=== PATIENT | male | born 1975 ===

== ENCOUNTER 2016-11-09 11:37 | Observation (INO) | payer OTHER ==
[2016-11-09 12:00] VITALS: RESP 18; O2SAT 98
[2016-11-09] MEDS ORDERED: Sodium Chloride 0.9% 1,000 ML IV ONE (12:10)
--- NOTE | 2016-11-09 12:10 | C.PDOC ---
History Of Present Illness 41-year-old male, presents to the emergency department with complaints of abdominal pain to lower abdomen, which is worse in right lower quadrant. Pain started last night. Pain is sharp and described as a cramping sensation. Patient notes a history of diverticulitis and last flare up in 11/2015, states that current symptoms feel similar. He notes feeling constipated. Last bowel movement yesterday, and it was non-bloody. Denies nausea/vomiting, fevers or chills. Time Seen by Provider: 11/09/16 12:06 Chief Complaint (Nursing): Abdominal Pain History Per: Patient History/Exam Limitations: no limitations Onset/Duration Of Symptoms: Days Current Symptoms Are (Timing): Still Present Location Of Pain/Discomfort: RLQ, LLQ Quality Of Discomfort: Sharp, Cramping, "Pain" Associated Symptoms: Constipation Past Medical History Reviewed: Historical Data, Nursing Documentation, Vital Signs Vital Signs: Last Vital Signs Temp 98.4 F 11/09/16 15:40 Pulse 68 11/09/16 15:40 Resp 18 11/09/16 15:40 BP 143/87 11/09/16 15:40 Pulse Ox 98 11/09/16 15:40 - Medical History PMH: Anxiety, Diverticulitis, HTN Surgical History: No Surg Hx Family History: States: No Known Family Hx - Social History Hx Alcohol Use: Yes Hx Substance Use: No - Immunization History Hx Tetanus Toxoid Vaccination: No Hx Influenza Vaccination: No Hx Pneumococcal Vaccination: No Review Of Systems Except As Marked, All Systems Reviewed And Found Negative. Constitutional: Negative for: Fever Cardiovascular: Negative for: Chest Pain Respiratory: Negative for: Shortness of Breath Gastrointestinal: Positive for: Abdominal Pain, Constipation Musculoskeletal: Negative for: Back Pain Neurological: Negative for: Weakness, Numbness, Headache, Dizziness Physical Exam - Physical Exam Appears: Non-toxic, No Acute Distress, Other (Uncomfortable) Skin: Warm, Dry, No Rash Head: Atraumatic, Normacephalic Eye(s): bilateral: Normal Inspection, EOMI Oral Mucosa: Moist Lips: Normal Appearing Neck: Normal ROM Chest: Symmetrical Cardiovascular: Rhythm Regular, No Murmur Respiratory: Normal Breath Sounds, No Accessory Muscle Use Gastrointestinal/Abdominal: Bowel Sounds, Soft, Tenderness (B/L lower quadrants) , No Mass, No Distention, Guarding (voluntary), No Rebound Extremity: Bilateral: Atraumatic, Normal Color And Temperature, Normal ROM Neurological/Psych: Oriented x3, Normal Speech Gait: Steady ED Course And Treatment - Laboratory Results Result Diagrams: 11/09/16 12:46 11/09/16 12:46 Lab Interpretation: Abnormal O2 Sat by Pulse Oximetry: 98 (room air) Pulse Ox Interpretation: Normal - CT Scan/US CT ABD/PEL Other Rad Studies (CT/US): Read By Radiologist, Radiology Report Reviewed CT/US Interpretation: Accession No. : [id number]. Patient Name / ID : BRAYAN DAY / [id number]. Exam Date : 11/09/2016 13:43:29 ( Approved ). Study Comment : Sex / Age : M / 41Y. Creator : Jaylen Hoffmann MD. Dictator : Jaylen Hoffmann MD. Parole Or Probation Officer : Customer Success Intern : Jaylen Hoffmann MD. Approver2 : Report Date : 11/09/2016 14:52:38. My Comment : . PROCEDURE : CT Abdomen and Pelvis with contrast. HISTORY: lower abd pain h.o diverticulitis. COMPARISON: None. TECHNIQUE: Contrast dose: 100 mL Visipaque 320. Radiation dose: Total exam DLP = 591.53 mGy-cm. This CT exam was performed using one or more of the following dose reduction techniques: Automated exposure control, adjustment of the mA and/or kV according to patient size, and/or use of iterative reconstruction technique. FINDINGS: LOWER THORAX : Mild ill-defined opacity lateral segment right middle lobe. Possible early pneumonia. LIVER: Normal size and contour. Diffusely diminished attenuation consistent with fatty infiltration. No focal mass. No biliary ductal dilatation. GALLBLADDER AND BILE DUCTS: Unremarkable. PANCREAS: Unremarkable. No gross lesion or ductal dilatation. SPLEEN: Unremarkable. ADRENALS: Unremarkable. No mass. KIDNEYS AND URETERS: Unremarkable. No hydronephrosis. No solid mass. VASCULATURE: Unremarkable. No aortic aneurysm. BOWEL: There is mural thickening of the sigmoid colon with very sigmoid inflammatory change. There is diverticulosis of this sigmoid colon. Findings are consistent with acute diverticulitis. No evidence of perisigmoid abscess. No evidence of pneumoperitoneum. Scattered colonic diverticular are noted elsewhere without inflammatory change. There is no bowel obstruction. There are no other abnormal bowel loops identified. APPENDIX: Normal appendix. PERITONEUM: Unremarkable. No free fluid. No free air. LYMPH NODES: Unremarkable. No enlarged lymph nodes. BLADDER: Unremarkable. REPRODUCTIVE: Normal prostate. BONES: Degenerative disc disease and grade 1 retrolisthesis at L5-S1, without evidence of spondylolysis. OTHER FINDINGS: None. IMPRESSION : Acute sigmoid diverticulitis. No evidence of very sigmoid abscess or pneumoperitoneum. Mild ill-defined opacity lateral segment right middle lobe, possible early pneumonia. Fatty infiltration of the liver. Medical Decision Making Medical Decision Making: Impression 41y/o M comes in w/ abdominal pain x3 days Plan: * CT Abd/Pel * CMP, Lipase * CBC * Catapres, Morphine, IVF, Zofran * Urinalysis * Reassess and Disposition ED OBSERVATION Discharge: Yes Date of observation admission: 11/09/16 Time of observation admission: 12:11 - Observation admission statement Patient is being placed in observation because:: Abdominal pain, suspect diverticulitis - Goals of Observation Goals of observation are:: IV hydration, analgesics, CT imaging - Progress Note Progress Note: 11/09/16 13:06 Labs reviewed: CBC has mild leukocytosis, no electrolyte abnormality, CT is pending. 11/09/16 14:31 CT has been completed, pending Radiology report 11/09/16 14:57 CT report shows Acute sigmoid diverticulitis. No evidence of very sigmoid abscess or pneumoperitoneum. 11/09/16 15:09 Patient reevaluated and is resting comfortably in bed in no acute distress. He reports abdominal pain has improved. Abdomen is soft, no rebound or guarding, and he was able to tolerate PO. Patient has no fever and stable vital signs. I discussed all results and provide copy of lab and CT report. Patient feels comfortable going home and will be discharged. BP has improved. Will discharge with Rx for antibiotics and antihypertensive. Patient was advised to follow up with clinic in few days. Disposition Counseled Patient/Family Regarding: Studies Performed, Diagnosis, Need For Followup, Rx Given - Disposition Disposition: HOME/ ROUTINE Disposition Time: 15:10 Condition: IMPROVED - POA Present On Arrival: None - Clinical Impression Clinical Impression: Diverticulitis, Abdominal pain - PA / PROFESSOR OF GRAPHIC DESIGN / Resident Statement MD/DO has reviewed & agrees with the documentation as recorded. - Scribe Statement The provider has reviewed the documentation as recorded by the Scribe (Domonique Quiroz) All medical record entries made by the Scribe were at my direction and personally dictated by me. I have reviewed the chart and agree that the record accurately reflects my personal performance of the history, physical exam, medical decision making, and the department course for this patient. I have also personally directed, reviewed, and agree with the discharge instructions and disposition.
[2016-11-09 12:51] LABS: BASO # 0.1 K/uL (0.0-0.2); BASO % 0.8 % (0.0-2.0); EOS # 0.2 K/uL (0.0-0.7); EOS % 1.8 % (0.0-4.0); HEMATOCRIT 42.6 % (35.0-51.0); LYMPH # 1.6 K/uL (1.0-4.3); LYMPH % 12.8 % (20.0-40.0); MEAN CELL VOLUME 87.2 fL (80.0-94.0); MEAN CORPUSCULAR HEMOGLOBIN 29.9 pg (27.0-31.0); MEAN CORPUSCULAR HGB CONC 34.3 g/dL (33.0-37.0); MONO % 7.8 % (0.0-10.0); RED CELL DISTRIBUTION WIDTH 13.1 % (11.5-14.5); WHITE BLOOD COUNT 12.6 K/uL (4.8-10.8)
[2016-11-09 12:54] LABS: RBC URINE 1 /hpf (0-3); URINE BILIRUBIN NEGATIVE (NEGATIVE); URINE BLOOD NEGATIVE (NEGATIVE); URINE COLOR Yellow (YELLOW); URINE GLUCOSE (UA) NORMAL (Normal); URINE KETONE NEGATIVE (NEGATIVE); URINE LEUKOCYTE ESTERASE NEG Leu/uL (Negative); URINE PROTEIN NEGATIVE (NEGATIVE); URINE UROBILINOGEN NORMAL mg/dL (0.2-1.0); WBC URINE < 1 /hpf (0-5)
[2016-11-09] MEDS ORDERED: Morphine 4 MG/ML VIAL ONE (12:54)
[2016-11-09] MEDS ORDERED: Sodium Chloride 0.9% 1,000 ML ONE (12:54)
[2016-11-09 12:57] LABS: CHLORIDE 99 mmol/L (98-107); POTASSIUM 3.8 mmol/L (3.6-5.2); SODIUM 137 mmol/L (132-148)
[2016-11-09 12:59] LABS: BILIRUBIN,TOTAL 1.1 mg/dL (0.2-1.3); GFR AFRICAN-AMERICAN > 60
[2016-11-09 13:00] LABS: ALB/GLOB RATIO 1.1 (1.0-2.1); ALKALINE PHOSPHATASE 53 U/L (38-126); AST/SGOT 24 U/L (17-59); CARBON DIOXIDE 25 mmol/L (22-30)
[2016-11-09 13:01] LABS: ALT/SGPT 44 U/L (21-72); BLOOD UREA NITROGEN 8 mg/dL (9-20); CALCIUM 9.2 mg/dl (8.6-10.4); GLUCOSE,RANDOM 103 mg/dL (75-110)
[2016-11-09] MEDS ORDERED: Iodixanol 320 MG/ML 100 ML BOTTLE IV ONE (13:22)
--- NOTE | 2016-11-09 14:54 | CT ---
PROCEDURE: CT Abdomen and Pelvis with contrast HISTORY: lower abd pain h.o diverticulitis COMPARISON: None. TECHNIQUE: Contrast dose: 100 mL Visipaque 320 Radiation dose: Total exam DLP = 591.53 mGy-cm. This CT exam was performed using one or more of the following dose reduction techniques: Automated exposure control, adjustment of the mA and/or kV according to patient size, and/or use of iterative reconstruction technique. FINDINGS: LOWER THORAX: Mild ill-defined opacity lateral segment right middle lobe. Possible early pneumonia. LIVER: Normal size and contour. Diffusely diminished attenuation consistent with fatty infiltration. No focal mass. No biliary ductal dilatation. GALLBLADDER AND BILE DUCTS: Unremarkable. PANCREAS: Unremarkable. No gross lesion or ductal dilatation. SPLEEN: Unremarkable. ADRENALS: Unremarkable. No mass. KIDNEYS AND URETERS: Unremarkable. No hydronephrosis. No solid mass. VASCULATURE: Unremarkable. No aortic aneurysm. BOWEL: There is mural thickening of the sigmoid colon with very sigmoid inflammatory change. There is diverticulosis of this sigmoid colon. Findings are consistent with acute diverticulitis. No evidence of perisigmoid abscess. No evidence of pneumoperitoneum. Scattered colonic diverticular are noted elsewhere without inflammatory change. There is no bowel obstruction. There are no other abnormal bowel loops identified. APPENDIX: Normal appendix. PERITONEUM: Unremarkable. No free fluid. No free air. LYMPH NODES: Unremarkable. No enlarged lymph nodes. BLADDER: Unremarkable. REPRODUCTIVE: Normal prostate BONES: Degenerative disc disease and grade 1 retrolisthesis at L5-S1, without evidence of spondylolysis. OTHER FINDINGS: None. IMPRESSION: Acute sigmoid diverticulitis. No evidence of very sigmoid abscess or pneumoperitoneum. Mild ill-defined opacity lateral segment right middle lobe, possible early pneumonia. Fatty infiltration of the liver.
[2016-11-09 15:41] VITALS: BP 143/87; PULSE 68; TEMP 98.4
== END 2016-11-09 15:11 | disposition home or self-care (01) ==
LOC: C.ER 11:37 → C.9OBSV 12:11
PROVIDERS: ADMIT Emergency Medicine; ATTEND Emergency Medicine
DX: K57.92 Diverticulitis of intestine, part unspecified, without perforation or abscess without bleeding (principal); K59.00 Constipation, unspecified; I10 Essential (primary) hypertension
CPT/HCPCS: 74177; 80053; 81001; 83690; 85025; 96360; 96374; G0378; J2270; J2405; J7040; Q9967

== ENCOUNTER 2016-12-16 11:20 | Inpatient (IN) | payer OTHER ==
[2016-12-16] MEDS ORDERED: Sodium Chloride 0.9% 1,000 ML IV ONE (12:00)
[2016-12-16] MEDS ORDERED: Sodium Chloride 0.9% 1,000 ML ONE (12:09)
[2016-12-16 12:31] LABS: BASO % 0.4 % (0.0-2.0); EOS % 0.3 % (0.0-4.0); HEMOGLOBIN 15.4 g/dL (12.0-18.0); LYMPH # 0.6 K/uL (1.0-4.3); LYMPH % 10.3 % (20.0-40.0); MEAN CORPUSCULAR HEMOGLOBIN 30.1 pg (27.0-31.0); MEAN CORPUSCULAR HGB CONC 33.8 g/dL (33.0-37.0); MONO # 0.3 K/uL (0.0-0.8); MONO % 4.8 % (0.0-10.0); NEUT # 5.3 K/uL (1.8-7.0); NEUT % 84.2 % (50.0-75.0); NRBC % 0.1 % (0.0-2.0); RBC 5.1 Mil/uL (4.40-5.90); RED CELL DISTRIBUTION WIDTH 13.5 % (11.5-14.5); WHITE BLOOD COUNT 6.3 K/uL (4.8-10.8)
[2016-12-16 12:39] LABS: ALBUMIN 4.4 g/dL (3.5-5.0)
[2016-12-16 12:42] LABS: ALB/GLOB RATIO 1.1 (1.0-2.1); AST/SGOT 33 U/L (17-59); BLOOD UREA NITROGEN 13 mg/dL (9-20); GFR AFRICAN-AMERICAN > 60; GFR NON-AFRICAN AMERICAN > 60
[2016-12-16 12:43] LABS: ALT/SGPT 52 U/L (21-72); CALCIUM 9.1 mg/dl (8.6-10.4); LIPASE 145 U/L (23-300)
--- NOTE | 2016-12-16 13:19 | CT ---
PROCEDURE: CT Abdomen and Pelvis without intravenous contrast HISTORY: Pain COMPARISON: Prior abdomen pelvis CT examination 11/09/2016. TECHNIQUE: Helical CT and pelvis performed without oral or intravenous contrast as per referring physician request despite gastrointestinal indication.. Contrast Dose: None Radiation dose: Total exam DLP = 454 mGy-cm. This CT exam was performed using one or more of the following dose reduction techniques: Automated exposure control, adjustment of the mA and/or kV according to patient size, and/or use of iterative reconstruction technique. FINDINGS: LOWER THORAX: Unremarkable. LIVER: Fatty liver again evident. No gross lesion or ductal dilatation. GALLBLADDER AND BILE DUCTS: Unremarkable. PANCREAS: Unremarkable. No gross lesion or ductal dilatation. SPLEEN: Unremarkable. ADRENALS: Unremarkable. No mass. KIDNEYS AND URETERS: Unremarkable. No hydronephrosis. No solid mass. VASCULATURE: Unremarkable. No aortic aneurysm. BOWEL: Prior sigmoid diverticulitis pattern appears to resolved. However, thickening of the descending colon wall is seen distally with pericolic reaction and associated diverticulosis suggestive of diverticulitis without CT sign of rupture. No abscess or free air. No significant fluid collection in the pericolic gutter. Further clinical correlation is advised. No bowel obstruction is appreciated with small-bowel unremarkable appearing unremarkable as well. The appendix remains retrocecal APPENDIX: Retrocecal. Normal appendix. PERITONEUM: Unremarkable. No free fluid. No free air. LYMPH NODES: Shotty pericecal and central mesenteric lymph nodes are again identified. . BLADDER: Poorly evaluated due to decompression. REPRODUCTIVE: Unremarkable. BONES: Advanced degenerate disc disease at L5-S1 with mild spondylolisthesis here is well. OTHER FINDINGS: None. IMPRESSION: 1. Findings most compatible with distal descending diverticulitis without CT sign of rupture. Differential diagnosis consists of other infectious or inflammatory causes, ischemia or neoplasm. Clinically correlate further. 2. Resolution of prior sigmoid diverticulitis. 3. Recurrent or persistent fatty liver.
--- NOTE | 2016-12-16 13:23 | C.PDOC ---
History Of Present Illness 41 y/o male, with history of HTN, anxiety, diverticulitis, prior umbilical hernia repair, presents to the emergency department for evaluation of diarrhea which began 1 day ago. Patient reports having around 20 bowel movements earlier today. He notes he may have had something bad to eat yesterday. He denies fever , chills, nausea, vomiting, back pain. Time Seen by Provider: 12/16/16 11:54 Chief Complaint (Nursing): Abdominal Pain History Per: Patient History/Exam Limitations: no limitations Onset/Duration Of Symptoms: Hrs Current Symptoms Are (Timing): Still Present Quality Of Discomfort: denies: "Pain" Associated Symptoms: Diarrhea. denies: Fever, Chills, Nausea, Vomiting Additional History Per: Patient Past Medical History Reviewed: Historical Data, Nursing Documentation, Vital Signs Vital Signs: Last Vital Signs Temp 98.4 F 12/16/16 11:40 Pulse 90 12/16/16 11:40 Resp 16 12/16/16 11:40 BP 143/98 H 12/16/16 11:40 Pulse Ox 99 12/16/16 16:13 - Medical History PMH: Anxiety, Diverticulitis, HTN Surgical History: No Surg Hx Family History: States: Unknown Family Hx - Social History Hx Alcohol Use: Yes Hx Substance Use: No - Immunization History Hx Tetanus Toxoid Vaccination: No Hx Influenza Vaccination: No Hx Pneumococcal Vaccination: No Review Of Systems Constitutional: Negative for: Fever, Chills Gastrointestinal: Positive for: Diarrhea. Negative for: Nausea, Vomiting Musculoskeletal: Negative for: Back Pain Physical Exam - Physical Exam Appears: Non-toxic, No Acute Distress Skin: Normal Color, Warm, Dry Head: Atraumatic, Normacephalic Eye(s): bilateral: Normal Inspection Oral Mucosa: Moist Neck: Supple Chest: Symmetrical, No Deformity, No Tenderness Cardiovascular: Rhythm Regular, No Murmur Respiratory: Normal Breath Sounds, No Rales, No Rhonchi, No Wheezing Gastrointestinal/Abdominal: Soft, Tenderness (mild, left-sided ), No Guarding, No Rebound Back: Normal Inspection, No Vertebral Tenderness, No Paraspinal Tenderness Extremity: Normal ROM, Capillary Refill (less than 2 seconds ) Neurological/Psych: Normal Speech, Normal Cognition Gait: Steady ED Course And Treatment - Laboratory Results Result Diagrams: 12/16/16 12:28 12/16/16 12:28 Lab Interpretation: Normal O2 Sat by Pulse Oximetry: 99 (on RA) Pulse Ox Interpretation: Normal - CT Scan/US CT A/P Other Rad Studies (CT/US): Interpreted By Me, Read By Radiologist, Radiology Report Reviewed CT/US Interpretation: Accession No. : [id number]. Patient Name / ID : BRAYAN DAY / [id number]. Exam Date : 12/16/2016 12:44:10 ( Approved ). Study Comment : Sex / Age : M / 41Y. Creator : Oc Darden MD. Dictator : Oc Darden MD. Legal Coordinator : Synthetic Cloth Binding Cutter : Oc Darden MD. Approver2 : Report Date : 12/16/2016 13:17:58. My Comment : . PROCEDURE: CT Abdomen and Pelvis without intravenous contrast. HISTORY: Pain. COMPARISON: Prior abdomen pelvis CT examination 11/09/2016. TECHNIQUE: Helical CT and pelvis performed without oral or intravenous contrast as per referring physician request despite gastrointestinal indication.. Contrast Dose : None. Radiation dose: Total exam DLP = 454 mGy-cm. This CT exam was performed using one or more of the following dose reduction techniques: Automated exposure control, adjustment of the mA and/or kV according to patient size, and/or use of iterative reconstruction technique. FINDINGS: LOWER THORAX : Unremarkable. LIVER: Fatty liver again evident. No gross lesion or ductal dilatation. GALLBLADDER AND BILE DUCTS: Unremarkable. PANCREAS: Unremarkable. No gross lesion or ductal dilatation. SPLEEN: Unremarkable. ADRENALS: Unremarkable. No mass. KIDNEYS AND URETERS: Unremarkable. No hydronephrosis. No solid mass. VASCULATURE: Unremarkable. No aortic aneurysm. BOWEL: Prior sigmoid diverticulitis pattern appears to resolved. However, thickening of the descending colon wall is seen distally with pericolic reaction and associated diverticulosis suggestive of diverticulitis without CT sign of rupture. No abscess or free air. No significant fluid collection in the pericolic gutter. Further clinical correlation is advised. No bowel obstruction is appreciated with small-bowel unremarkable appearing unremarkable as well. The appendix remains retrocecal. APPENDIX: Retrocecal. Normal appendix. PERITONEUM: Unremarkable. No free fluid. No free air. LYMPH NODES: Shotty pericecal and central mesenteric lymph nodes are again identified. . BLADDER: Poorly evaluated due to decompression. REPRODUCTIVE: Unremarkable. BONES: Advanced degenerate disc disease at L5-S1 with mild spondylolisthesis here is well. OTHER FINDINGS: None. IMPRESSION: 1. Findings most compatible with distal descending diverticulitis without CT sign of rupture. Differential diagnosis consists of other infectious or inflammatory causes, ischemia or neoplasm. Clinically correlate further. 2. Resolution of prior sigmoid diverticulitis. 3. Recurrent or persistent fatty liver. Progress Note: Labs and CT A/P ordered and reviewed. Patient received Toradol IV , Zofran IV, and IV Fluids. treated with augmentin. On re-evaluation abdomen soft mild LLQ tenderness Reassessment Condition: Unchanged - Physician Consult Information Physician Contacted: Adolfo Barrientos Outcome Of Conversation: admit to OBS Disposition Discussed With Dr.: Adolfo Barrientos Doctor Will See Patient In The: Hospital Counseled Patient/Family Regarding: Studies Performed - Disposition Disposition: HOSPITALIZED Disposition Time: 15:00 Condition: STABLE - POA Present On Arrival: None - Clinical Impression Clinical Impression: Diarrhea, Diverticulitis - PA / OCCUPATIONAL THERAPIST ASSISTANTS / Resident Statement MD/DO has reviewed & agrees with the documentation as recorded. - Scribe Statement The provider has reviewed the documentation as recorded by the Scribe (Mariama Barrientos) All medical record entries made by the Scribe were at my direction and personally dictated by me. I have reviewed the chart and agree that the record accurately reflects my personal performance of the history, physical exam, medical decision making, and the department course for this patient. I have also personally directed, reviewed, and agree with the discharge instructions and disposition. Decision To Admit - Pt Status Changed To: Hospital Disposition Of: Observation - . Bed Request Type: Regular Admitting Physician: Adolfo Barrientos Patient Diagnosis: Diarrhea, Diverticulitis
[2016-12-16] MEDS ORDERED: Amoxicillin-Clav 875-125 mg Tab PO STA (13:50)
[2016-12-16 13:53] LABS: URINE BILIRUBIN NEGATIVE (NEGATIVE); URINE BLOOD 1+ (NEGATIVE); URINE CLARITY Clear (Clear); URINE COLOR Yellow (YELLOW); URINE GLUCOSE (UA) NORMAL (Normal); URINE LEUKOCYTE ESTERASE NEG Leu/uL (Negative); URINE NITRATE NEGATIVE (NEGATIVE); URINE PROTEIN 1+ mg/dL (NEGATIVE); URINE UROBILINOGEN NORMAL mg/dL (0.2-1.0)
[2016-12-16] MEDS ORDERED: Amoxicillin-Clav 875-125 mg Tab PO ONE (13:59)
--- NOTE | 2016-12-16 16:39 | CP.PCM.HP ---
<Yoel Mai E - Last Filed: 12/16/16 20:33> History of Present Illness - History of Present Illness History of Present Illness: CC: LLQ Abdominal Pain HPI: Patient is a 41 year old male with past medical history significant for diverticulitis (dx in 2016), hemorrhoids/anal fissure, uncontrolled HTN and anxiety who presented to the ED today with complaint of severe left lower quadrant abdominal pain that began 2 days ago. The pain is described to be constant and stabbing in nature, currently 8/10, but has been a 10/10 at its worse yesterday without any radiation. He reports exacerbation of the pain after eating solid foods and he experiences mild relief following a bowel movement and minimal/temporary relief with Advil 200mg (2 tablets) at home. Patient states that the pain came on shortly after eating a cheeseburger & fries two nights ago. The pain was initially "crampy" in nature, then continued to persist. Other notable meals patient had since onset of pain, include an entree of chicken & rice at a restaurant last night and tomato soup today. He does continue to have an appetite, but has been unable to tolerate food due to abdominal pain. Furthermore, patient describes the character of the pain to be very similar in nature to his prior flare ups of diverticulitis, however this current episode has been the worst in severity. He reports feelings of fever ( Tmax 104 F, yesterday), chills, night sweats, and generalized fatigue in association. Patient is otherwise in no acute distress. Patient denies signs of chest pain, palpitations, SOB, headache, dizziness, rectal bleeding, nausea, vomiting, urinary changes, recent weight loss, sick contacts or recent travels. No other complaints are noted at this time. 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 Denies illicit drug use. Medications given in the ER: 0.9%NS @ 1000mls/hr once, Zofran 4mg IV Q6H once, Augementin 875-125mg PO once, Toradol 30mg IVP once Present on Admission - Present on Admission Any Indicators Present on Admission: No Review of Systems - Constitutional Constitutional: Chills, Fever, Night Sweats, Weakness - EENT Eyes: absent: Blurred Vision, Change in Vision Ears: absent: Dizziness - Cardiovascular Cardiovascular: Diaphoresis. absent: Chest Pain, Chest Pain at Rest, Dyspnea, Lightheadedness, Palpitations, Pedal Edema - Respiratory Respiratory: absent: Dyspnea, Dyspnea on Exertion - Gastrointestinal Gastrointestinal: Abdominal Pain, Diarrhea, Excessive Flatus, Loose Stools. absent: Nausea, Vomiting - Genitourinary Genitourinary: absent: Difficulty Urinating, Pyuria, Urinary Frequency - Neurological Neurological: Weakness. absent: Confusion, Dizziness, Numbness, Headaches, Syncope - Psychiatric Psychiatric: Anxiety - Endocrine Endocrine: Excessive Sweating, Fatigue. absent: Palpitations Past Patient History - Past Social History Smoking Status: Never Smoked - CARDIAC Hx Hypertension: Yes - GASTROINTESTINAL Hx Diverticulitis: Yes - PSYCHIATRIC Hx Anxiety: Yes Hx Substance Use: No - SURGICAL HISTORY Hx Herniorrhaphy: Yes - ANESTHESIA Hx Anesthesia: No Meds Allergies/Adverse Reactions: Allergies Allergy/AdvReac Type Severity Reaction Status Date / Time No Known Allergies Allergy Verified 12/16/16 11:43 Physical Exam - Constitutional Appears: No Acute Distress - Head Exam Head Exam: ATRAUMATIC, NORMAL INSPECTION - Eye Exam Eye Exam: EOMI, Normal appearance - ENT Exam ENT Exam: Mucous Membranes Moist, Normal Exam - Respiratory Exam Respiratory Exam: Clear to Auscultation Bilateral, NORMAL BREATHING PATTERN - Cardiovascular Exam Cardiovascular Exam: REGULAR RHYTHM, +S1, +S2 - GI/Abdominal Exam GI & Abdominal Exam: Normal Bowel Sounds, Tenderness - Extremities Exam Extremities exam: Positive for: normal capillary refill, normal inspection. Negative for: calf tenderness, pedal pulses present - Neurological Exam Neurological exam: Alert, Normal Gait, Oriented x3 - Psychiatric Exam Psychiatric exam: Normal Affect, Normal Mood - Skin Skin Exam: Dry, Normal Color, Warm Results - Vital Signs Recent Vital Signs: Last Vital Signs Temp 102.5 F H 12/16/16 16:23 Pulse 90 12/16/16 16:23 Resp 18 12/16/16 16:23 BP 169/90 H 12/16/16 16:23 Pulse Ox 99 12/16/16 16:23 - Labs Result Diagrams: 12/16/16 12:28 12/16/16 12:28 Assessment & Plan (1) Acute diverticulitis Assessment and Plan: On admission: * Febrile 102.5 * No elevated WBC * Neutrophils: 84.8 Medications: * Ciprofloxacin 400mg IVPB Q12H * Metronidazole 500mg IVPB Q8H * Tylenol 650mg PO Q6H PRN for fever>100.4 * Toradol 30mg IV q6 prn for pain control Labs: F/u stool culture F/u Ova and Parasitex3 F/u Gram Staining Imaging: Abdomen/Pelvis CT: * Findings most compatible with distal descending diverticulitis without CT sign of rupture. Differential diagnosis consists of other infectious or inflammatory causes, ischemia or neoplasm. Clinically correlate further. * Resolution of prior sigmoid diverticulitis. * Recurrent or persistent fatty liver. Status: Acute (2) Hypokalemia Assessment and Plan: On Admission: * K+: 3.5 * K-dur oral solution 40meq Once * Monitor with BMP Status: Acute (3) History of hypertension Assessment and Plan: Uncontrolled On admission: * 169/40 Medication: * Norvasc 5mg PO daily Monitor Status: Acute (4) History of anxiety disorder Assessment and Plan: Continue home medication: * Venlafaxine 75mg PO Daily Status: Acute (5) Prophylactic measure Assessment and Plan: Ambulating SCD GI PPX: Pepcid 20mg PO BID DVT RISK: 1 --> No indication for lovenox or heparin Status: Acute <Adolfo Barrientos - Last Filed: 12/17/16 11:12> Results - Vital Signs Recent Vital Signs: Last Vital Signs Temp 98.7 F 12/17/16 06:00 Pulse 89 12/17/16 06:00 Resp 20 12/17/16 06:00 BP 119/74 12/17/16 06:00 Pulse Ox 97 12/17/16 06:00 - Labs Result Diagrams: 12/17/16 06:59 12/17/16 06:59 Labs: Laboratory Results - last 24 hr 12/17/16 12/17/16 12/17/16 06:59 06:59 06:59 WBC 7.0 RBC 4.34 L Hgb 13.2 D Hct 38.0 MCV 87.7 MCH 30.4 MCHC 34.7 RDW 13.0 Plt Count 227 MPV 8.1 Neut % (Auto) 74.3 Lymph % (Auto) 16.7 L [place] % (Auto) 8.4 Eos % (Auto) 0.2 Baso % (Auto) 0.4 Neut # 5.2 Lymph # 1.2 [place] # 0.6 Eos # 0.0 Baso # 0.0 Sodium 137 Potassium 3.2 L Chloride 100 Carbon Dioxide 22 Anion Gap 18 BUN 10 Creatinine 1.1 Est GFR ( Amer) > 60 Est GFR (Non-Af Amer) > 60 Random Glucose 124 H Lactic Acid 0.9 Calcium 8.0 L Phosphorus 3.3 Magnesium 1.5 L Attending/Attestation - Attestation I have personally seen and examined this patient.: Yes I have fully participated in the care of the patient.: Yes I have reviewed all pertinent clinical information: Yes Notes (Text): 12/17/16 11:11 Patient was seen and examined with the Resident in the ER on 12/16/16 History, Physical, Assessment and Plan were thoroughly gone over with the Resident. Adolfo Barrientos D.O.
[2016-12-16] MEDS ORDERED: metroNIDAZOLE IV 500 mg/100 ml 500 MG/100 ML BAG ONE (17:04)
[2016-12-16] MEDS: metroNIDAZOLE IV 500 mg/100 ml 500 MG/100 ML BAG IVPB SCH ×2 (17:10→23:51)
[2016-12-16] MEDS: Potassium Chloride 20 mEq/15 ml LIQ UD PO ONE ×2 (20:59→22:51)
[2016-12-16] MEDS: Ciprofloxacin 400mg/200ml D5W 400 MG/200 ML BAG IVPB SCH (20:59)
[2016-12-16] MEDS ORDERED: Potassium Chloride 20 mEq ER Tab PO ONE (21:30)
[2016-12-17 03:44] VITALS: RESP 20
[2016-12-17] MEDS: Ciprofloxacin 400mg/200ml D5W 400 MG/200 ML BAG IVPB SCH ×2 (05:46→17:02)
[2016-12-17 07:13] LABS: BASO % 0.4 % (0.0-2.0); EOS % 0.2 % (0.0-4.0); LYMPH # 1.2 K/uL (1.0-4.3); LYMPH % 16.7 % (20.0-40.0); MEAN CELL VOLUME 87.7 fL (80.0-94.0); MEAN CORPUSCULAR HEMOGLOBIN 30.4 pg (27.0-31.0); MEAN CORPUSCULAR HGB CONC 34.7 g/dL (33.0-37.0); MEAN PLATELET VOLUME 8.1 fL (7.2-11.7); MONO # 0.6 K/uL (0.0-0.8); MONO % 8.4 % (0.0-10.0); NEUT # 5.2 K/uL (1.8-7.0); NEUT % 74.3 % (50.0-75.0); NRBC % 0.1 % (0.0-2.0); RBC 4.34 Mil/uL (4.40-5.90)
[2016-12-17 07:18] LABS: HEMOGLOBIN 13.2 g/dL (12.0-18.0)
[2016-12-17 07:23] LABS: BLOOD UREA NITROGEN 10 mg/dL (9-20); GFR AFRICAN-AMERICAN > 60; GFR NON-AFRICAN AMERICAN > 60
[2016-12-17 07:24] LABS: MAGNESIUM 1.5 mg/dL (1.6-2.3)
[2016-12-17] MEDS ORDERED: Magnesium Sulfate 1 gm in D5W 1 GM/100 ML BAG IVPB ONE (07:43)
[2016-12-17] MEDS ORDERED: Potassium Chloride 20 mEq/15 ml LIQ UD PO ONE (08:15)
[2016-12-17] MEDS: metroNIDAZOLE IV 500 mg/100 ml 500 MG/100 ML BAG IVPB SCH ×2 (08:20→16:54)
[2016-12-17] MEDS: Venlafaxine 75 mg ER Cap PO SCH (09:56)
[2016-12-17] MEDS ORDERED: Potassium Chloride 20 mEq ER Tab PO ONE (10:00)
--- NOTE | 2016-12-17 14:33 | CP.PCM.PN ---
Subjective - Date & Time of Evaluation Date of Evaluation: 12/17/16 Time of Evaluation: 09:40 - Subjective Subjective: Medicine Note (PGY 1): Dr. Carlos Barrientos's service Patient was seen and examined at bedside. Patient was resting in bed in no acute distress. Patient still continues to report LLQ abdominal pain, profuse diarrhea, night sweats and intermittent fever but denies nausea, vomiting, chills, dizziness. Patient is able to tolerate full clear liquids. Objective - Vital Signs/Intake and Output Vital Signs (last 24 hours): Temp Pulse Resp BP Pulse Ox 98.7 F 89 20 119/74 97 12/17/16 12:22 12/17/16 06:00 12/17/16 06:00 12/17/16 06:00 12/17/16 06:00 Intake and Output: 12/17/16 12/17/16 06:59 18:59 Intake Total 540 Balance 540 - Medications Medications: Current Medications Acetaminophen (Tylenol 325mg Tab) 650 mg PO Q6 [facility] Last Admin: 12/17/16 12:22 Dose: 650 mg Amlodipine Besylate (Norvasc) 5 mg PO DAILY [facility] Last Admin: 12/17/16 09:56 Dose: 5 mg Famotidine (Pepcid) 20 mg PO BID [facility] Last Admin: 12/17/16 09:56 Dose: 20 mg Ciprofloxacin (Cipro 400mg/200ml Dsw) 400 mg in 200 mls @ 133 mls/hr IVPB Q12H [facility] Last Admin: 12/17/16 05:46 Dose: 133 mls/hr Metronidazole (Flagyl) 500 mg in 100 mls @ 100 mls/hr IVPB Q8H [facility] Last Admin: 12/17/16 08:20 Dose: 100 mls/hr Ketorolac Tromethamine (Toradol) 30 mg IVP Q6 PRN PRN Reason: Pain, severe (8-10) Last Admin: 12/17/16 10:02 Dose: 30 mg Ketorolac Tromethamine (Toradol) 15 mg IVP Q6 PRN PRN Reason: Pain, moderate (4-7) Ondansetron HCl (Zofran Inj) 4 mg IVP Q6H PRN PRN Reason: Nausea/Vomiting Venlafaxine HCl (Effexor Xr) 75 mg PO DAILY [facility] Last Admin: 12/17/16 09:56 Dose: 75 mg - Constitutional Appears: No Acute Distress - Head Exam Head Exam: ATRAUMATIC, NORMAL INSPECTION - Eye Exam Eye Exam: EOMI, Normal appearance - ENT Exam ENT Exam: Mucous Membranes Moist, Normal Exam - Respiratory Exam Respiratory Exam: Clear to Ausculation Bilateral, NORMAL BREATHING PATTERN - Cardiovascular Exam Cardiovascular Exam: REGULAR RHYTHM, +S1, +S2 - GI/Abdominal Exam GI & Abdominal Exam: Tenderness, Hyperactive Bowel Sounds - Extremities Exam Extremities Exam: Normal Capillary Refill, Normal Inspection. absent: Calf Tenderness, Pedal Edema, Tenderness - Neurological Exam Neurological Exam: Alert, Awake, Oriented x3 - Psychiatric Exam Psychiatric exam: Normal Affect, Normal Mood - Skin Skin Exam: Dry, Normal Color, Warm Assessment and Plan (1) Acute diverticulitis Assessment & Plan: On admission: * Febrile 102.5 * No elevated WBC * Neutrophils: 84.8----> 74.3(12/17/16) Medications: * Continue ciprofloxacin 400mg IVPB Q12H * Continue Metronidazole 500mg IVPB Q8H * Continue Tylenol 650mg PO Q6H [facility], * Continue Toradol 30mg IV q6 prn for pain control Labs: Stool Leukocytes: Negative Pending stool culture Pending Ova and Parasitex3 Pending Blood Culture Pending urine Culture Imaging: Abdomen/Pelvis CT: * Findings most compatible with distal descending diverticulitis without CT sign of rupture. Differential diagnosis consists of other infectious or inflammatory causes, ischemia or neoplasm. Clinically correlate further. * Resolution of prior sigmoid diverticulitis. * Recurrent or persistent fatty liver. Status: Acute (2) Hypokalemia Assessment & Plan: On Admission: * K+: 3.5, Given K-dur oral solution 40meq Once - K+: 3.2 (12/17/16): K-dur 40meq Once * K-dur oral solution 40meq Once * Monitor with BMP, CMP Status: Acute (3) Hypomagnesemia Assessment & Plan: Mg 2+: 1.5 Medication: * Magnesium sulfate 1gm IVPB once Monitor with CMP, BMP Status: Acute (4) History of hypertension Assessment & Plan: Uncontrolled On admission: * 169/40 Medication: * Norvasc 5mg PO daily Monitor Status: Acute (5) History of anxiety disorder Assessment & Plan: Continue home medication: * Venlafaxine 75mg PO Daily Status: Acute (6) Prophylactic measure Assessment & Plan: Ambulating SCD GI PPX: Pepcid 20mg PO BID DVT RISK: 1 --> No indication for lovenox or heparin Status: Acute
--- NOTE | 2016-12-17 15:11 | CP.PCM.PCO ---
Physician Communication Note - Physician Communication Note Physician Communication Note: Please see above
[2016-12-18] MEDS: metroNIDAZOLE IV 500 mg/100 ml 500 MG/100 ML BAG IVPB SCH ×3 (00:11→16:38)
[2016-12-18] MEDS: Ciprofloxacin 400mg/200ml D5W 400 MG/200 ML BAG IVPB SCH (05:02)
[2016-12-18 07:22] LABS: BASO % 0.2 % (0.0-2.0); EOS # 0.1 K/uL (0.0-0.7); EOS % 0.9 % (0.0-4.0); HEMOGLOBIN 13.5 g/dL (12.0-18.0); LYMPH # 0.9 K/uL (1.0-4.3); LYMPH % 12.4 % (20.0-40.0); MEAN CELL VOLUME 88.1 fL (80.0-94.0); MEAN CORPUSCULAR HEMOGLOBIN 30.2 pg (27.0-31.0); MEAN CORPUSCULAR HGB CONC 34.3 g/dL (33.0-37.0); MEAN PLATELET VOLUME 8.3 fL (7.2-11.7); MONO # 0.9 K/uL (0.0-0.8); MONO % 12.3 % (0.0-10.0); NEUT # 5.6 K/uL (1.8-7.0); NEUT % 74.2 % (50.0-75.0); NRBC % 0.1 % (0.0-2.0); RBC 4.46 Mil/uL (4.40-5.90); RED CELL DISTRIBUTION WIDTH 13.1 % (11.5-14.5); WHITE BLOOD COUNT 7.5 K/uL (4.8-10.8)
[2016-12-18 07:41] LABS: ALBUMIN 3.6 g/dL (3.5-5.0)
[2016-12-18 07:44] LABS: AST/SGOT 23 U/L (17-59); GFR AFRICAN-AMERICAN > 60; GFR NON-AFRICAN AMERICAN > 60
[2016-12-18 07:45] LABS: ALT/SGPT 33 U/L (21-72); BLOOD UREA NITROGEN 7 mg/dL (9-20); CALCIUM 8.4 mg/dl (8.6-10.4); MAGNESIUM 1.9 mg/dL (1.6-2.3)
[2016-12-18] MEDS: Venlafaxine 75 mg ER Cap PO SCH (09:16)
--- NOTE | 2016-12-18 09:48 | CP.PCM.PN ---
<Saud Vines - Last Filed: 12/18/16 14:32> Subjective - Date & Time of Evaluation Date of Evaluation: 12/18/16 Time of Evaluation: 09:48 - Subjective Subjective: PGY [address] Baum Patient seen and examined at bedside. Patient reports minimal change in his left lower quadrant pain and is still having profuse diarrhea (approx. 10 bowel movements/day). Patient states he is experiencing an increase in the amount of flatus. "This happens every time I have antibiotics" Patient states he is feeling hungrier today and would like to trial a solid bland diet. Patient is still spiking fevers overnight (Tmax = 101.0F last night.) Physical exam is notable for abdominal LLQ pain on palpation, as well as CVA tenderness on the left. Objective - Vital Signs/Intake and Output Vital Signs (last 24 hours): Temp Pulse Resp BP Pulse Ox 99.4 F 79 20 125/75 97 12/18/16 07:45 12/18/16 07:45 12/18/16 07:45 12/18/16 07:45 12/18/16 07:45 Intake and Output: 12/18/16 12/18/16 06:59 18:59 Intake Total 1240 Output Total 800 Balance 440 - Medications Medications: Current Medications Acetaminophen (Tylenol 325mg Tab) 650 mg PO Q6 [facility] Last Admin: 12/18/16 06:33 Dose: Not Given Amlodipine Besylate (Norvasc) 5 mg PO DAILY [facility] Last Admin: 12/18/16 09:16 Dose: 5 mg Famotidine (Pepcid) 20 mg PO BID [facility] Last Admin: 12/18/16 09:16 Dose: 20 mg Ciprofloxacin (Cipro 400mg/200ml Dsw) 400 mg in 200 mls @ 133 mls/hr IVPB Q12H [facility] Last Admin: 12/18/16 05:02 Dose: 133 mls/hr Metronidazole (Flagyl) 500 mg in 100 mls @ 100 mls/hr IVPB Q8H [facility] Last Admin: 12/18/16 09:16 Dose: 100 mls/hr Ketorolac Tromethamine (Toradol) 30 mg IVP Q6 PRN PRN Reason: Pain, severe (8-10) Last Admin: 12/18/16 05:02 Dose: 30 mg Ketorolac Tromethamine (Toradol) 15 mg IVP Q6 PRN PRN Reason: Pain, moderate (4-7) Ondansetron HCl (Zofran Inj) 4 mg IVP Q6H PRN PRN Reason: Nausea/Vomiting Venlafaxine HCl (Effexor Xr) 75 mg PO DAILY [facility] Last Admin: 12/18/16 09:16 Dose: 75 mg - Labs Labs: 12/18/16 07:13 12/18/16 07:13 - Constitutional Appears: Non-toxic, No Acute Distress - ENT Exam ENT Exam: Mucous Membranes Moist - Respiratory Exam Respiratory Exam: Accessory Muscle Use, Clear to Ausculation Bilateral, NORMAL BREATHING PATTERN. absent: Respiratory Distress - Cardiovascular Exam Cardiovascular Exam: REGULAR RHYTHM, +S1, +S2 - GI/Abdominal Exam GI & Abdominal Exam: Soft, Tenderness, Hyperactive Bowel Sounds. absent: Distended, Firm, Rigid Additional comments: Extreme tenderness to palpation in the left lower quadrant. - Extremities Exam Extremities Exam: absent: Joint Swelling, Pedal Edema, Tenderness - Back Exam Back Exam: CVA tenderness (L) - Neurological Exam Neurological Exam: Alert, Awake, Oriented x3 - Psychiatric Exam Psychiatric exam: Normal Affect, Normal Mood - Skin Skin Exam: Dry, Normal Color, Warm Assessment and Plan - Assessment and Plan (Free Text) Plan: Diverticulitis - Ciprofloxacin 400mg/200ml discontinued - Zosyn 3.375g/50mls @100ml/hr IV - Continue Flagyl 500 mg/100ml @100ml/hr - Patient's current line is too small. Will try and place new, larger peripheral line. If it fails, will f/u with midline. - Pain is not currently well controlled. Due to concern for bleeding, Toradol switched for morphine 1mg IVP Q6H PRN. - GI Consult posed to Dr. Ephraim Arnett. Any recommendations are highly appreciated. - Patient had colonoscopy several years ago due to bleeding per rectum. According to patient, it was determined at that time to be due to anal fissures. - Patient advised to get new colonoscopy 6-8 weeks upon discharge from hospital. - Florastor 250mg PO BID added due to diarrhea and antibiotic use. - Stool O&P negative (12/17). - Advance to bland diet, as patient tolerates. Fevers - WBC 7.5 today. Fecal leukocytes and blood cultures negative as of 12/17. Will continue to administer Tylenol 650mg PO Q6. - HIV and Hepatitis panel ordered due to patient risk factors (MSM). Electrolyte abnormality - K+ 3.2 (12/17) --> 3.7 today, after 40 mEq K-dur PO given yesterday. Will continue to monitor. - Mg2+ 1.5 (12/17) --> 1.9 today after repletion. Will continue to monitor. CVA tenderness - F/U ultrasound of the kidneys. R/O Pyelonephritis. Urinalysis clean (12/17) and patient not reporting any urinary complaints. Hx of HTN - BP 125/75 this morning. Continue Norvasc 5mg PO QD. Continue to monitor. Hx of Anxiety - Patient is mildly anxious today due to days missed at work. Patient denies suicidality. Continue Effexor Xr 75 mg PO QD. Continue to monitor. Prophylaxis - Pepcid 20mg PO BID for GI prophylaxis. - No anticoagulation indicated as patient has no risk factors and is ambulatory. <Sean Baum - Last Filed: 12/18/16 16:19> Objective - Vital Signs/Intake and Output Vital Signs (last 24 hours): Temp Pulse Resp BP Pulse Ox 99.4 F 79 20 125/75 97 12/18/16 11:37 12/18/16 07:45 12/18/16 07:45 12/18/16 07:45 12/18/16 07:45 Intake and Output: 12/18/16 12/18/16 06:59 18:59 Intake Total 1240 350 Output Total 800 Balance 440 350 - Medications Medications: Current Medications Acetaminophen (Tylenol 325mg Tab) 650 mg PO Q6 [facility] Last Admin: 12/18/16 11:37 Dose: 650 mg Amlodipine Besylate (Norvasc) 5 mg PO DAILY [facility] Last Admin: 12/18/16 09:16 Dose: 5 mg Famotidine (Pepcid) 20 mg PO BID [facility] Last Admin: 12/18/16 09:16 Dose: 20 mg Metronidazole (Flagyl) 500 mg in 100 mls @ 100 mls/hr IVPB Q8H [facility] Last Admin: 12/18/16 09:16 Dose: 100 mls/hr Piperacillin Sod/Tazobactam Sod (Zosyn 3.375 Gm Iv Premix) 3.375 gm in 50 mls @ 100 mls/hr IVPB Q6H [facility] Last Admin: 12/18/16 14:04 Dose: 100 mls/hr Morphine Sulfate (Morphine) 1 mg IVP Q6H PRN PRN Reason: Pain, severe (8-10) Ondansetron HCl (Zofran Inj) 4 mg IVP Q6H PRN PRN Reason: Nausea/Vomiting Saccharomyces Boulardii (Florastor) 250 mg PO BID [facility] Last Admin: 12/18/16 11:44 Dose: 250 mg Venlafaxine HCl (Effexor Xr) 75 mg PO DAILY [facility] Last Admin: 12/18/16 09:16 Dose: 75 mg - Labs Labs: 12/18/16 07:13 12/18/16 07:13 Attending/Attestation - Attestation I have personally seen and examined this patient.: Yes I have fully participated in the care of the patient.: Yes I have reviewed all pertinent clinical information, including history, physical exam and plan: Yes Notes (Text): 12/18/16 16:18 Patient was seen and examined at bedside with the resident Complains of for abdominal pain. Patient complains of diarrhea also. We will we will continue antibiotics and we will change the antibiotic from ciprofloxacin to Zosyn We will also request gastroenterology and surgical evaluation for the patient I discussed the plan of care with the resident and agree with this history and physical and assessment/plan recommended by the resident.
[2016-12-18] MEDS ORDERED: Pneumococcal 23-Valent Vaccine IM ONE (10:00)
[2016-12-18] MEDS: Saccharomyces Boulardi 250 mg Cap PO SCH ×2 (11:44→17:47)
--- NOTE | 2016-12-18 12:47 | CP.PCM.CON ---
<Ricardo Bills - Last Filed: 12/18/16 12:54> History of Present Illness - History of Present Illness History of Present Illness: PGY5 GI Fellow Consult Note Patient is a 41yo male with PMHx significant for multiple bouts of diverticulitis, anal fissure, generalized anxiety who presented to the ED with abdominal pain. Four days ago he suddenly developed loose stool following dinner. He then had left sided abdominal pain that awoke him from sleep and was 10+/10 at onset. Pain remained constant and improved to, at best, a 4-5/10. He altered his diet, eating only soft foods and noc analyst meals along with PO tylenol without much improvement in symptoms and thus came to the ED for further evaluation. He has had 3-4 episodes of acute diverticulitis in the past 2 years, treated at both our facility and [facility]. Pain was always located in the lower abdomen B/L and states that this episode was uncharacteristic of his typical symptoms. His most recent episode was treated with 10 day course of PO Cipro/Flagyl which he completed approximately one month [employer]. No recent travel, sick contacts. Currently, symptoms are improved but he does have some low level left sided abdominal pain. Tolerating a liquid diet without issue and denies any nausea, vomiting, fever, chills. PMHx: See HPI PSHx: Umbilical hernia repair FHx: DM, HTN Social: Former smoker (~15 pack years), former EtOH abuse currently in , denies illicit drug use Endo: Colonosocpy 4-5 years ago; unremarkable per patient - cannot recall physician's name 12 system ROS performed and negative except for where stated above. Past Patient History - Past Medical History & Family History Past Medical History?: Yes - Past Social History Smoking Status: Never Smoked - CARDIAC Hx Hypertension: Yes - MUSCULOSKELETAL/RHEUMATOLOGICAL Hx Falls: No - GASTROINTESTINAL Hx Diverticulitis: Yes - PSYCHIATRIC Hx Substance Use: No - SURGICAL HISTORY Hx Herniorrhaphy: Yes - ANESTHESIA Hx Anesthesia: No Meds Allergies/Adverse Reactions: Allergies Allergy/AdvReac Type Severity Reaction Status Date / Time No Known Allergies Allergy Verified 12/16/16 11:43 - Medications Medications: Current Medications Acetaminophen (Tylenol 325mg Tab) 650 mg PO Q6 [facility] Last Admin: 12/18/16 11:37 Dose: 650 mg Amlodipine Besylate (Norvasc) 5 mg PO DAILY [facility] Last Admin: 12/18/16 09:16 Dose: 5 mg Famotidine (Pepcid) 20 mg PO BID [facility] Last Admin: 12/18/16 09:16 Dose: 20 mg Metronidazole (Flagyl) 500 mg in 100 mls @ 100 mls/hr IVPB Q8H [facility] Last Admin: 12/18/16 09:16 Dose: 100 mls/hr Piperacillin Sod/Tazobactam Sod (Zosyn 3.375 Gm Iv Premix) 3.375 gm in 50 mls @ 100 mls/hr IVPB Q6H [facility] Morphine Sulfate (Morphine) 1 mg IVP Q6H PRN PRN Reason: Pain, severe (8-10) Ondansetron HCl (Zofran Inj) 4 mg IVP Q6H PRN PRN Reason: Nausea/Vomiting Saccharomyces Boulardii (Florastor) 250 mg PO BID [facility] Last Admin: 12/18/16 11:44 Dose: 250 mg Venlafaxine HCl (Effexor Xr) 75 mg PO DAILY [facility] Last Admin: 12/18/16 09:16 Dose: 75 mg Physical Exam - Constitutional Appears: Non-toxic, No Acute Distress - Eye Exam Eye Exam: EOMI, PERRL - ENT Exam ENT Exam: Mucous Membranes Moist - Respiratory Exam Respiratory Exam: Clear to Auscultation Bilateral. absent: Rales, Rhonchi, Wheezes - Cardiovascular Exam Cardiovascular Exam: RRR, +S1, +S2 - GI/Abdominal Exam GI & Abdominal Exam: Normal Bowel Sounds, Soft, Tenderness (LUQ>LLQ). absent: Distended, Firm, Guarding, Organomegaly, Rigid - Extremities Exam Extremities exam: Positive for: normal inspection. Negative for: pedal edema - Neurological Exam Neurological exam: Alert, Oriented x3 - Psychiatric Exam Psychiatric exam: Normal Affect, Normal Mood - Skin Skin Exam: Dry, Warm Results - Vital Signs Recent Vital Signs: Last Vital Signs Temp 99.4 F 12/18/16 11:37 Pulse 79 12/18/16 07:45 Resp 20 12/18/16 07:45 BP 125/75 12/18/16 07:45 Pulse Ox 97 12/18/16 07:45 - Labs Result Diagrams: 12/18/16 07:13 12/18/16 07:13 Labs: Laboratory Results - last 24 hr 12/18/16 12/18/16 07:13 07:13 WBC 7.5 RBC 4.46 Hgb 13.5 Hct 39.3 MCV 88.1 MCH 30.2 MCHC 34.3 RDW 13.1 Plt Count 260 MPV 8.3 Neut % (Auto) 74.2 Lymph % (Auto) 12.4 L Finney % (Auto) 12.3 H Eos % (Auto) 0.9 Baso % (Auto) 0.2 Neut # 5.6 Lymph # 0.9 L Finney # 0.9 H Eos # 0.1 Baso # 0.0 Sodium 136 Potassium 3.7 Chloride 98 Carbon Dioxide 24 Anion Gap 18 BUN 7 L Creatinine 0.9 Est GFR ( Amer) > 60 Est GFR (Non-Af Amer) > 60 Random Glucose 105 Calcium 8.4 L Phosphorus 2.4 L Magnesium 1.9 Total Bilirubin 0.8 AST 23 ALT 33 Alkaline Phosphatase 46 Total Protein 7.0 Albumin 3.6 Globulin 3.4 Albumin/Globulin Ratio 1.0 Assessment & Plan - Assessment and Plan (Free Text) Assessment: Patient is a 41yo male with PMHx significant for multiple bouts of diverticulitis, anal fissure, generalized anxiety who presented to the ED with abdominal pain. -Recurrent acute descending colon diverticulitis -Anal fissure -JEREMIAH Plan: -Agree with IV ABX coverage with Cipro/Flagyl however would consider switching Cipro to Ceftriaxone given number of episodes -Analgesia per primary service -Check stool for C diff given recent ABX exposure; stool culture -Augment fiber and water intake -Advance to soft diet, continue to advance as tolerated -Patient will need colonoscopy 6-8 wks following resolution of symptoms as outpt -Recommend general surgical consultation given frequent recurrence and eval need for partial colectomy -Encourage patient to complete paperwork for [facility] - Date & Time Date: 12/18/16 Time: 12:15 <Gaviota Singh MD - Last Filed: 12/18/16 19:31> Meds - Medications Medications: Current Medications Acetaminophen (Tylenol 325mg Tab) 650 mg PO Q6 [facility] Last Admin: 12/18/16 17:47 Dose: 650 mg Amlodipine Besylate (Norvasc) 5 mg PO DAILY [facility] Last Admin: 12/18/16 09:16 Dose: 5 mg Famotidine (Pepcid) 20 mg PO BID [facility] Last Admin: 12/18/16 17:47 Dose: 20 mg Metronidazole (Flagyl) 500 mg in 100 mls @ 100 mls/hr IVPB Q8H [facility] Last Admin: 12/18/16 16:38 Dose: 100 mls/hr Piperacillin Sod/Tazobactam Sod (Zosyn 3.375 Gm Iv Premix) 3.375 gm in 50 mls @ 100 mls/hr IVPB Q6H [facility] Last Admin: 12/18/16 17:47 Dose: 100 mls/hr Morphine Sulfate (Morphine) 1 mg IVP Q6H PRN PRN Reason: Pain, severe (8-10) Ondansetron HCl (Zofran Inj) 4 mg IVP Q6H PRN PRN Reason: Nausea/Vomiting Saccharomyces Boulardii (Florastor) 250 mg PO BID [facility] Last Admin: 12/18/16 17:47 Dose: 250 mg Venlafaxine HCl (Effexor Xr) 75 mg PO DAILY [facility] Last Admin: 12/18/16 09:16 Dose: 75 mg Results - Vital Signs Recent Vital Signs: Last Vital Signs Temp 99.6 F 12/18/16 16:00 Pulse 76 12/18/16 16:00 Resp 20 12/18/16 16:00 BP 125/77 12/18/16 16:00 Pulse Ox 98 12/18/16 16:00 - Labs Result Diagrams: 12/18/16 07:13 12/18/16 07:13 Labs: Laboratory Results - last 24 hr 12/18/16 12/18/16 07:13 07:13 WBC 7.5 RBC 4.46 Hgb 13.5 Hct 39.3 MCV 88.1 MCH 30.2 MCHC 34.3 RDW 13.1 Plt Count 260 MPV 8.3 Neut % (Auto) 74.2 Lymph % (Auto) 12.4 L Finney % (Auto) 12.3 H Eos % (Auto) 0.9 Baso % (Auto) 0.2 Neut # 5.6 Lymph # 0.9 L Finney # 0.9 H Eos # 0.1 Baso # 0.0 Sodium 136 Potassium 3.7 Chloride 98 Carbon Dioxide 24 Anion Gap 18 BUN 7 L Creatinine 0.9 Est GFR ( Amer) > 60 Est GFR (Non-Af Amer) > 60 Random Glucose 105 Calcium 8.4 L Phosphorus 2.4 L Magnesium 1.9 Total Bilirubin 0.8 AST 23 ALT 33 Alkaline Phosphatase 46 Total Protein 7.0 Albumin 3.6 Globulin 3.4 Albumin/Globulin Ratio 1.0 Attending/Attestation - Attestation I have personally seen and examined this patient.: Yes I have fully participated in the care of the patient.: Yes I have reviewed all pertinent clinical information: Yes Notes (Text): 12/18/16 19:28 Patient seen with GI fellow on rounds. This is a 41yo male with PMHx significant for multiple bouts of diverticulitis, anal fissure, generalized anxiety who presented to the ED with abdominal pain in setting of uncomplicated descending colon diverticulitis. This is his fourth episode in two years and will benefit from surgical concult. Last colonoscopy few years ago done for anal fissure but was unremarkable. Agree with antibiotic coverage. Patient encouraged to apply for [facility] for outpatient colonoscopy in 4-6 weeks. Complaining of diarrhea- will send stool infectious work up. Advance diet as tolerated.
[2016-12-18] MEDS: Piperacill/Tazo 3.375gm in Dex 3.375 GM/50 ML BAG IVPB SCH ×3 (14:04→23:44)
--- NOTE | 2016-12-18 17:41 | CP.PCM.CON ---
History of Present Illness - History of Present Illness History of Present Illness: General surgery consult note for Dr. Chaitanya Emmanuel, PGY-1 Pt S & E at bedside. 41M w/PMH sig for diverticulitis x 4 consulted for LLQ abdominal pain x 4 days. At onset, pain was severe, non radiating, constant. Pain now much improved, mild-moderate intensity. Pt reports first solid BM today. Is tolerating a liquid diet, asking for more food. Admits to loose stools, hunger, fevers, pain behind eyes with fevers, chills, diaphoresis, previous episodes of similar with antibiotic treatment and improvement. Denies N/V, SOB, constipation, hematochezia, hematuria, dysuria. PMH: Diverticulitis x 4, anal fissure, hemorrhoids, anxiety PSH: Umbilical hernia repair All: NKDA SH: Former tobacco use (~15 pack years), former EtOH abuse currently in AA, denies illicit drug use Review of Systems - Review of Systems All systems: reviewed and no additional remarkable complaints except - Constitutional Constitutional: Chills, Fever, Weakness. absent: Headache - EENT Eyes: absent: Change in Vision Nose/Mouth/Throat: Sore Throat - Cardiovascular Cardiovascular: absent: Chest Pain, Palpitations - Respiratory Respiratory: absent: Cough - Gastrointestinal Gastrointestinal: Abdominal Pain, Diarrhea, Loose Stools. absent: Constipation , Hematochezia, Melena, Nausea, Vomiting - Genitourinary Genitourinary: absent: Change in Urinary Stream, Dysuria - Musculoskeletal Musculoskeletal: absent: Neck Pain - Psychiatric Psychiatric: Anxiety Past Patient History - Past Medical History & Family History Past Medical History?: Yes - Past Social History Smoking Status: Never Smoked - CARDIAC Hx Hypertension: Yes - MUSCULOSKELETAL/RHEUMATOLOGICAL Hx Falls: No - GASTROINTESTINAL Hx Diverticulitis: Yes - PSYCHIATRIC Hx Substance Use: No - SURGICAL HISTORY Hx Herniorrhaphy: Yes - ANESTHESIA Hx Anesthesia: No Meds Allergies/Adverse Reactions: Allergies Allergy/AdvReac Type Severity Reaction Status Date / Time No Known Allergies Allergy Verified 12/16/16 11:43 - Medications Medications: Current Medications Acetaminophen (Tylenol 325mg Tab) 650 mg PO Q6 [facility] Last Admin: 12/18/16 11:37 Dose: 650 mg Amlodipine Besylate (Norvasc) 5 mg PO DAILY [facility] Last Admin: 12/18/16 09:16 Dose: 5 mg Famotidine (Pepcid) 20 mg PO BID [facility] Last Admin: 12/18/16 09:16 Dose: 20 mg Metronidazole (Flagyl) 500 mg in 100 mls @ 100 mls/hr IVPB Q8H [facility] Last Admin: 12/18/16 16:38 Dose: 100 mls/hr Piperacillin Sod/Tazobactam Sod (Zosyn 3.375 Gm Iv Premix) 3.375 gm in 50 mls @ 100 mls/hr IVPB Q6H [facility] Last Admin: 12/18/16 14:04 Dose: 100 mls/hr Morphine Sulfate (Morphine) 1 mg IVP Q6H PRN PRN Reason: Pain, severe (8-10) Ondansetron HCl (Zofran Inj) 4 mg IVP Q6H PRN PRN Reason: Nausea/Vomiting Saccharomyces Boulardii (Florastor) 250 mg PO BID [facility] Last Admin: 12/18/16 11:44 Dose: 250 mg Venlafaxine HCl (Effexor Xr) 75 mg PO DAILY [facility] Last Admin: 12/18/16 09:16 Dose: 75 mg Physical Exam - Constitutional Appears: Non-toxic, No Acute Distress - Head Exam Head Exam: ATRAUMATIC, NORMAL INSPECTION, NORMOCEPHALIC - Eye Exam Eye Exam: EOMI, Normal appearance - ENT Exam ENT Exam: Mucous Membranes Moist, Normal Exam - Neck Exam Neck exam: Positive for: Full Rom, Normal Inspection - Respiratory Exam Respiratory Exam: Clear to Auscultation Bilateral, NORMAL BREATHING PATTERN - Cardiovascular Exam Cardiovascular Exam: REGULAR RHYTHM, +S1, +S2 - GI/Abdominal Exam GI & Abdominal Exam: Normal Bowel Sounds, Soft, Tenderness (LLQ). absent: Distended, Firm - Rectal Exam Rectal Exam: Deferred - Extremities Exam Extremities exam: Positive for: normal inspection. Negative for: pedal edema, tenderness - Neurological Exam Neurological exam: Alert, Oriented x3 - Psychiatric Exam Psychiatric exam: Normal Affect, Normal Mood - Skin Skin Exam: Dry, Intact, Normal Color, Warm Results - Vital Signs Recent Vital Signs: Last Vital Signs Temp 99.6 F 12/18/16 16:00 Pulse 76 12/18/16 16:00 Resp 20 12/18/16 16:00 BP 125/77 12/18/16 16:00 Pulse Ox 98 12/18/16 16:00 - Labs Result Diagrams: 12/18/16 07:13 12/18/16 07:13 Labs: Laboratory Results - last 24 hr 12/18/16 12/18/16 07:13 07:13 WBC 7.5 RBC 4.46 Hgb 13.5 Hct 39.3 MCV 88.1 MCH 30.2 MCHC 34.3 RDW 13.1 Plt Count 260 MPV 8.3 Neut % (Auto) 74.2 Lymph % (Auto) 12.4 L Gage % (Auto) 12.3 H Eos % (Auto) 0.9 Baso % (Auto) 0.2 Neut # 5.6 Lymph # 0.9 L Gage # 0.9 H Eos # 0.1 Baso # 0.0 Sodium 136 Potassium 3.7 Chloride 98 Carbon Dioxide 24 Anion Gap 18 BUN 7 L Creatinine 0.9 Est GFR ( Amer) > 60 Est GFR (Non-Af Amer) > 60 Random Glucose 105 Calcium 8.4 L Phosphorus 2.4 L Magnesium 1.9 Total Bilirubin 0.8 AST 23 ALT 33 Alkaline Phosphatase 46 Total Protein 7.0 Albumin 3.6 Globulin 3.4 Albumin/Globulin Ratio 1.0 Assessment & Plan - Assessment and Plan (Free Text) Assessment: 41M w/diverticulitis Plan: -No surgical intervention at this time -Serial ab exams -Monitor for fevers -Advance diet as tolerated -Pain mgmt as per primary team -Agree with Abx choice of Zosyn -Recommend follow up with Dr. Vazquez as outpatient to discuss surgical options -may repeat CT ab w/PO cont tomorrow if pt is febrile overnight with no clinical improvement DW attending Lien, PGY-1 - Date & Time Date: 12/18/16 Time: 17:41
[2016-12-18 19:45] LABS: HEPATITIS B SURFACE AG NEGATIVE (NEGATIVE)
[2016-12-18 19:51] LABS: HEPATITIS A IGM NEGATIVE (NEGATIVE); HEPATITIS B CORE AB NEGATIVE (NEGATIVE)
[2016-12-18 20:03] LABS: HEPATITIS C ANTIBODY NEGATIVE (NEGATIVE)
[2016-12-18] MEDS: Morphine 4 MG/ML VIAL IVP PRN (21:33)
--- NOTE | 2016-12-18 22:45 | US ---
EXAM: US Retroperitoneal Complete, Renal CLINICAL HISTORY: 41 years old, male; Signs and symptoms; Other: CVA tenderness TECHNIQUE: Real-time ultrasound of the retroperitoneum (complete) with image documentation. COMPARISON: No relevant prior studies available. FINDINGS: Right kidney: Right kidney measures 12.3 CM. No stones. No hydronephrosis. Left kidney: Left kidney measures 10.2 CM. No stones. No hydronephrosis. Bladder: Unremarkable as visualized. IMPRESSION: No acute findings.
[2016-12-19] MEDS: metroNIDAZOLE IV 500 mg/100 ml 500 MG/100 ML BAG IVPB SCH ×3 (01:08→17:41)
[2016-12-19] MEDS: Piperacill/Tazo 3.375gm in Dex 3.375 GM/50 ML BAG IVPB SCH ×3 (05:52→18:42)
[2016-12-19 08:15] LABS: BASO % 0.3 % (0.0-2.0); EOS # 0.1 K/uL (0.0-0.7); LYMPH # 1.3 K/uL (1.0-4.3); LYMPH % 13.4 % (20.0-40.0); MEAN CELL VOLUME 86.9 fL (80.0-94.0); MEAN CORPUSCULAR HEMOGLOBIN 29.9 pg (27.0-31.0); MEAN CORPUSCULAR HGB CONC 34.4 g/dL (33.0-37.0); MEAN PLATELET VOLUME 7.9 fL (7.2-11.7); MONO # 1.3 K/uL (0.0-0.8); MONO % 13.3 % (0.0-10.0); NEUT # 7.1 K/uL (1.8-7.0); NRBC % 0.2 % (0.0-2.0); RBC 4.34 Mil/uL (4.40-5.90); RED CELL DISTRIBUTION WIDTH 12.9 % (11.5-14.5); WHITE BLOOD COUNT 9.9 K/uL (4.8-10.8)
[2016-12-19] MEDS: Morphine 4 MG/ML VIAL IVP PRN ×3 (08:29→22:19)
[2016-12-19 08:52] LABS: ALBUMIN 3.4 g/dL (3.5-5.0)
--- NOTE | 2016-12-19 08:53 | CP.PCM.PN ---
Subjective - Date & Time of Evaluation Date of Evaluation: 12/19/16 Time of Evaluation: 08:00 - Subjective Subjective: General Surgery progress note Patient was seen and examine at bedside. Patient reports that his symptoms are improving. Patient had no acute issues overnight but had a Tmax: 101.9. Patient denies nausea, vomiting, chills, and night sweat but still admits to mild LLQ abdominal pain. Patient is tolerating solid diet and ambulating. Objective - Vital Signs/Intake and Output Vital Signs (last 24 hours): Temp Pulse Resp BP Pulse Ox 99.1 F 75 20 124/75 98 12/19/16 08:06 12/19/16 08:06 12/19/16 08:06 12/19/16 08:06 12/19/16 08:06 Intake and Output: 12/19/16 12/19/16 06:59 18:59 Intake Total 500 450 Balance 500 450 - Medications Medications: Current Medications Acetaminophen (Tylenol 325mg Tab) 650 mg PO Q6 [facility] Last Admin: 12/19/16 05:52 Dose: 650 mg Amlodipine Besylate (Norvasc) 5 mg PO DAILY [facility] Last Admin: 12/18/16 09:16 Dose: 5 mg Famotidine (Pepcid) 20 mg PO BID [facility] Last Admin: 12/18/16 17:47 Dose: 20 mg Metronidazole (Flagyl) 500 mg in 100 mls @ 100 mls/hr IVPB Q8H [facility] Last Admin: 12/19/16 01:08 Dose: 100 mls/hr Piperacillin Sod/Tazobactam Sod (Zosyn 3.375 Gm Iv Premix) 3.375 gm in 50 mls @ 100 mls/hr IVPB Q6H [facility] Last Admin: 12/19/16 05:52 Dose: 100 mls/hr Morphine Sulfate (Morphine) 1 mg IVP Q6H PRN PRN Reason: Pain, severe (8-10) Last Admin: 12/19/16 08:29 Dose: 1 mg Ondansetron HCl (Zofran Inj) 4 mg IVP Q6H PRN PRN Reason: Nausea/Vomiting Saccharomyces Boulardii (Florastor) 250 mg PO BID [facility] Last Admin: 12/18/16 17:47 Dose: 250 mg Venlafaxine HCl (Effexor Xr) 75 mg PO DAILY [facility] Last Admin: 12/18/16 09:16 Dose: 75 mg - Labs Labs: 12/19/16 08:04 12/18/16 07:13 - Constitutional Appears: Well, No Acute Distress - Head Exam Head Exam: ATRAUMATIC - Eye Exam Eye Exam: EOMI, Normal appearance - ENT Exam ENT Exam: Mucous Membranes Moist, Normal Exam - Respiratory Exam Respiratory Exam: Clear to Ausculation Bilateral, NORMAL BREATHING PATTERN - Cardiovascular Exam Cardiovascular Exam: REGULAR RHYTHM, +S1, +S2 - GI/Abdominal Exam GI & Abdominal Exam: Soft, Tenderness, Normal Bowel Sounds Additional comments: LLQ Tenderness - Extremities Exam Extremities Exam: Normal Inspection - Neurological Exam Neurological Exam: Alert, Awake, Oriented x3 - Psychiatric Exam Psychiatric exam: Normal Affect, Normal Mood - Skin Skin Exam: Dry, Normal Color, Warm Assessment and Plan (1) Acute diverticulitis Assessment & Plan: Stable No surgical intervention at this time Continue antibiotics regimen as per primary care team Continue to monitor for fever Monitor for bowel function Recommend follow up with Dr. Vazquez as outpatient to discuss surgical options Possible discharge tomorrow if patient is afebrile for 24 hours Status: Acute
[2016-12-19 08:55] LABS: ALB/GLOB RATIO 0.9 (1.0-2.1); ALT/SGPT 30 U/L (21-72); AST/SGOT 20 U/L (17-59); BLOOD UREA NITROGEN 6 mg/dL (9-20); CALCIUM 8.4 mg/dl (8.6-10.4); GFR AFRICAN-AMERICAN > 60; GFR NON-AFRICAN AMERICAN > 60
--- NOTE | 2016-12-19 08:59 | CP.PCM.PN ---
<Silvia Barrientos - Last Filed: 12/19/16 09:03> Subjective - Date & Time of Evaluation Date of Evaluation: 12/19/16 Time of Evaluation: 07:00 - Subjective Subjective: PGY 4 GI Follow Up Pt seen and examined bedside States sig improvement in pain rates his pain a 2-3 out of 10, still in the LLQ, nonradiating able to tolerate reg diet Had some discomfort in the Am after meal Denies any nausea or vomiting Denies any fever, chills, or diaphoresis No other complaints ROS: 12-point ROS conducted, other than whta was previously, mentioned above its otherwise neg Objective - Vital Signs/Intake and Output Vital Signs (last 24 hours): Temp Pulse Resp BP Pulse Ox 99.1 F 75 20 124/75 98 12/19/16 08:06 12/19/16 08:06 12/19/16 08:06 12/19/16 08:06 12/19/16 08:06 Intake and Output: 12/19/16 12/19/16 06:59 18:59 Intake Total 500 450 Balance 500 450 - Medications Medications: Current Medications Acetaminophen (Tylenol 325mg Tab) 650 mg PO Q6 [facility] Last Admin: 12/19/16 05:52 Dose: 650 mg Amlodipine Besylate (Norvasc) 5 mg PO DAILY [facility] Last Admin: 12/18/16 09:16 Dose: 5 mg Famotidine (Pepcid) 20 mg PO BID [facility] Last Admin: 12/18/16 17:47 Dose: 20 mg Metronidazole (Flagyl) 500 mg in 100 mls @ 100 mls/hr IVPB Q8H [facility] Last Admin: 12/19/16 01:08 Dose: 100 mls/hr Piperacillin Sod/Tazobactam Sod (Zosyn 3.375 Gm Iv Premix) 3.375 gm in 50 mls @ 100 mls/hr IVPB Q6H [facility] Last Admin: 12/19/16 05:52 Dose: 100 mls/hr Morphine Sulfate (Morphine) 1 mg IVP Q6H PRN PRN Reason: Pain, severe (8-10) Last Admin: 12/19/16 08:29 Dose: 1 mg Ondansetron HCl (Zofran Inj) 4 mg IVP Q6H PRN PRN Reason: Nausea/Vomiting Saccharomyces Boulardii (Florastor) 250 mg PO BID [facility] Last Admin: 12/18/16 17:47 Dose: 250 mg Venlafaxine HCl (Effexor Xr) 75 mg PO DAILY [facility] Last Admin: 12/18/16 09:16 Dose: 75 mg - Labs Labs: 12/19/16 08:04 12/19/16 08:04 - Constitutional Appears: Non-toxic, No Acute Distress - Head Exam Head Exam: NORMAL INSPECTION - Eye Exam Eye Exam: Normal appearance - ENT Exam ENT Exam: Mucous Membranes Moist, Normal Exam - Neck Exam Neck Exam: Normal Inspection - Respiratory Exam Respiratory Exam: Clear to Ausculation Bilateral, NORMAL BREATHING PATTERN. absent: Rales, Rhonchi, Wheezes, Respiratory Distress - Cardiovascular Exam Cardiovascular Exam: REGULAR RHYTHM, +S1, +S2 - GI/Abdominal Exam GI & Abdominal Exam: Soft, Normal Bowel Sounds. absent: Firm, Guarding, Rigid, Organomegaly Additional comments: tender LLQ - Extremities Exam Extremities Exam: absent: Joint Swelling, Tenderness - Neurological Exam Neurological Exam: Alert, Awake, Oriented x3 - Skin Skin Exam: Dry, Intact, Normal Color, Warm Assessment and Plan - Assessment and Plan (Free Text) Assessment: Patient is a 41yo male with PMHx significant for multiple bouts of diverticulitis, anal fissure, generalized anxiety who presented to the ED with abdominal pain. -Recurrent acute descending colon diverticulitis -Anal fissure -JEREMIAH Plan: -Pt's symptoms have sig improved -Okay to D/C home from GI standpoint, if pain is controlled and able to tolerate diet with difficulty -Transition to PO abx for an additional 1 week if pt get discharged today, can do cipro and flagyl -Augment fiber and water intake -Advance to soft diet, continue to advance as tolerated -Patient will need colonoscopy 6-8 wks following resolution of symptoms as outpt -Encourage patient to complete paperwork for [facility] D/W Dr. Arnett <Ephraim Arnett - Last Filed: 12/19/16 09:14> Objective - Vital Signs/Intake and Output Vital Signs (last 24 hours): Temp Pulse Resp BP Pulse Ox 99.1 F 75 20 124/75 98 12/19/16 08:06 12/19/16 08:06 12/19/16 08:06 12/19/16 08:06 12/19/16 08:06 Intake and Output: 12/19/16 12/19/16 06:59 18:59 Intake Total 500 450 Balance 500 450 - Medications Medications: Current Medications Acetaminophen (Tylenol 325mg Tab) 650 mg PO Q6 [facility] Last Admin: 12/19/16 05:52 Dose: 650 mg Amlodipine Besylate (Norvasc) 5 mg PO DAILY [facility] Last Admin: 12/18/16 09:16 Dose: 5 mg Famotidine (Pepcid) 20 mg PO BID [facility] Last Admin: 12/18/16 17:47 Dose: 20 mg Metronidazole (Flagyl) 500 mg in 100 mls @ 100 mls/hr IVPB Q8H [facility] Last Admin: 12/19/16 01:08 Dose: 100 mls/hr Piperacillin Sod/Tazobactam Sod (Zosyn 3.375 Gm Iv Premix) 3.375 gm in 50 mls @ 100 mls/hr IVPB Q6H [facility] Last Admin: 12/19/16 05:52 Dose: 100 mls/hr Morphine Sulfate (Morphine) 1 mg IVP Q6H PRN PRN Reason: Pain, severe (8-10) Last Admin: 12/19/16 08:29 Dose: 1 mg Ondansetron HCl (Zofran Inj) 4 mg IVP Q6H PRN PRN Reason: Nausea/Vomiting Saccharomyces Boulardii (Florastor) 250 mg PO BID [facility] Last Admin: 12/18/16 17:47 Dose: 250 mg Venlafaxine HCl (Effexor Xr) 75 mg PO DAILY [facility] Last Admin: 12/18/16 09:16 Dose: 75 mg - Labs Labs: 12/19/16 08:04 12/19/16 08:04 Attending/Attestation - Attestation I have personally seen and examined this patient.: Yes I have fully participated in the care of the patient.: Yes I have reviewed all pertinent clinical information, including history, physical exam and plan: Yes Notes (Text): 12/19/16 09:11 I have seen and examined patient with GI fellow. No acute events overnight, he is seen resting in bed comfortably. He still endorses mild LLQ abdominal pain though much improved compared to yesterday. He otherwise denies nausea, vomiting, fever/chills. He ate arg[place]ine toast and oatmeal this morning without significant discomfort. Review of vitals from today are normal. Anxiety Abdominal pain - acute descending colon diverticulitis - Diet has been advanced by medical team, continue to monitor patient clinical status - Continue with antibiotic therapy for additional 1 week - From GI perspective if tolerating PO diet, can discharge home with subsequent outpatient follow up - Patient would require colonoscopy approximately 2 months following resolution of acute symptoms - No further planned GI intervention, will sign off case. Please reconsult as necessary, thank you.
[2016-12-19] MEDS ORDERED: Potassium Chloride 20 mEq/15 ml LIQ UD PO ONE (10:00)
[2016-12-19] MEDS ORDERED: Potassium Chloride 20 mEq ER Tab PO ONE (10:15)
[2016-12-19] MEDS: Saccharomyces Boulardi 250 mg Cap PO SCH ×2 (10:21→17:41)
[2016-12-19] MEDS: Venlafaxine 75 mg ER Cap PO SCH (10:36)
[2016-12-19 11:38] LABS: MAGNESIUM 2.1 mg/dL (1.6-2.3)
--- NOTE | 2016-12-19 18:17 | CP.PCM.PN ---
<Saud Vines - Last Filed: 12/19/16 18:29> Subjective - Date & Time of Evaluation Date of Evaluation: 12/19/16 Time of Evaluation: 09:00 - Subjective Subjective: PGY [address] Baum Patient seen and examined this morning. The patient's pain has improved drastically. Patient states his pain is a 3 out of 10. Patient states that after he received the probiotic yesterday his bowel movements has decreased significantly. Patient states he stopped going every hour to only once every 4 to 5 hours. He states that his bowel movements are still loose, but are becoming more formed and less watery. Denies any blood in his stool. He is tolerating a soft diet. Patient states he still is getting fevers that occur around 2300 every night. He says he gets the chills then soon after becomes diaphoretic. Patient denies N/V, SOB or CP. Objective - Vital Signs/Intake and Output Vital Signs (last 24 hours): Temp Pulse Resp BP Pulse Ox 98 F 73 20 124/79 98 12/19/16 15:00 12/19/16 15:00 12/19/16 15:00 12/19/16 15:00 12/19/16 15:00 Intake and Output: 12/19/16 12/19/16 06:59 18:59 Intake Total 500 950 Output Total 800 Balance 500 150 - Medications Medications: Current Medications Acetaminophen (Tylenol 325mg Tab) 650 mg PO Q6 [facility] Last Admin: 12/19/16 17:42 Dose: 650 mg Amlodipine Besylate (Norvasc) 5 mg PO DAILY [facility] Last Admin: 12/19/16 10:21 Dose: 5 mg Famotidine (Pepcid) 20 mg PO BID [facility] Last Admin: 12/19/16 17:42 Dose: 20 mg Metronidazole (Flagyl) 500 mg in 100 mls @ 100 mls/hr IVPB Q8H [facility] Last Admin: 12/19/16 17:41 Dose: 100 mls/hr Piperacillin Sod/Tazobactam Sod (Zosyn 3.375 Gm Iv Premix) 3.375 gm in 50 mls @ 100 mls/hr IVPB Q6H [facility] Last Admin: 12/19/16 11:58 Dose: 100 mls/hr Morphine Sulfate (Morphine) 1 mg IVP Q6H PRN PRN Reason: Pain, severe (8-10) Last Admin: 12/19/16 16:24 Dose: 1 mg Ondansetron HCl (Zofran Inj) 4 mg IVP Q6H PRN PRN Reason: Nausea/Vomiting Saccharomyces Boulardii (Florastor) 250 mg PO BID [facility] Last Admin: 12/19/16 17:41 Dose: 250 mg Venlafaxine HCl (Effexor Xr) 75 mg PO DAILY [facility] Last Admin: 12/19/16 10:36 Dose: 75 mg - Labs Labs: 12/19/16 08:04 12/19/16 08:04 - Constitutional Appears: Non-toxic, No Acute Distress - ENT Exam ENT Exam: Mucous Membranes Moist - Respiratory Exam Respiratory Exam: Clear to Ausculation Bilateral, NORMAL BREATHING PATTERN. absent: Accessory Muscle Use, Respiratory Distress - Cardiovascular Exam Cardiovascular Exam: REGULAR RHYTHM, +S1, +S2 - GI/Abdominal Exam GI & Abdominal Exam: Soft, Tenderness, Normal Bowel Sounds. absent: Distended, Firm, Guarding, Rigid Additional comments: Tender to palpation in the LLQ. - Extremities Exam Extremities Exam: absent: Pedal Edema - Neurological Exam Neurological Exam: Alert, Awake, Oriented x3 - Psychiatric Exam Psychiatric exam: Anxious, Normal Affect, Normal Mood Additional comments: Patient recently started new job and is anxious to leave hospital so he can return to work. - Skin Skin Exam: Dry, Normal Color, Warm Assessment and Plan - Assessment and Plan (Free Text) Assessment: Diverticulitis - Continue Zosyn 3.375g/50mls @100ml/hr IV - Continue Flagyl 500 mg/100ml @100ml/hr - Pain is not currently well controlled. Due to concern for bleeding, Toradol switched for morphine 1mg IVP Q6H PRN. - GI Consult posed to Dr. Ephraim Arnett. Any recommendations are highly appreciated. - Patient had colonoscopy several years ago due to bleeding per rectum. According to patient, it was determined at that time to be due to anal fissures. - Patient advised to get new colonoscopy 6-8 weeks upon discharge from hospital. - Florastor 250mg PO BID added due to diarrhea and antibiotic use. - Stool O&P negative (12/17) - C. Diff negative (12/18) - Tolerating soft diet. - No surgical intervention at this time, per Gen. Surgery note -Patient is to follow up with Dr. Vazquez as outpatient to discuss surgical options for prophylactic bowel resection. Fevers - WBC 9.9 today. Fecal leukocytes and blood cultures negative as of 12/18. Will continue to administer Tylenol 650mg PO Q6. - Hepatitis panel negative - HIV test still pending Electrolyte abnormality - K+ 3.7 (12/18) --> 3.5 today, given 40 mEq K-dur PO given today. Will continue to monitor. - Mg2+ 1.9 (12/18) --> 2.1 today. Will continue to monitor. CVA tenderness - ultrasound of the kidneys - No acute findings. - Right kidney measured 12.3 cm. No stones. No hydronephrosis. - Left kidney measured 10.2 cm. No stones. No hydronephrosis. - Bladder: unremarkable as visualized. Hx of HTN - BP 124/79 this morning. Continue Norvasc 5mg PO QD. Continue to monitor. Hx of Anxiety - Patient is mildly anxious today due to days missed at work. Patient denies suicidality. Continue Effexor Xr 75 mg PO QD. Continue to monitor. Prophylaxis - Pepcid 20mg PO BID for GI prophylaxis. - No anticoagulation indicated as patient has no risk factors and is ambulatory. Discussed with Dr. Sarika Vines PGY 1 <Sean Baum - Last Filed: 12/19/16 18:56> Objective - Vital Signs/Intake and Output Vital Signs (last 24 hours): Temp Pulse Resp BP Pulse Ox 98 F 73 20 124/79 98 12/19/16 15:00 12/19/16 15:00 12/19/16 15:00 12/19/16 15:00 12/19/16 15:00 Intake and Output: 12/19/16 12/19/16 06:59 18:59 Intake Total 500 950 Output Total 800 Balance 500 150 - Medications Medications: Current Medications Acetaminophen (Tylenol 325mg Tab) 650 mg PO Q6 [facility] Last Admin: 12/19/16 17:42 Dose: 650 mg Amlodipine Besylate (Norvasc) 5 mg PO DAILY [facility] Last Admin: 12/19/16 10:21 Dose: 5 mg Famotidine (Pepcid) 20 mg PO BID [facility] Last Admin: 12/19/16 17:42 Dose: 20 mg Metronidazole (Flagyl) 500 mg in 100 mls @ 100 mls/hr IVPB Q8H [facility] Last Admin: 12/19/16 17:41 Dose: 100 mls/hr Piperacillin Sod/Tazobactam Sod (Zosyn 3.375 Gm Iv Premix) 3.375 gm in 50 mls @ 100 mls/hr IVPB Q6H [facility] Last Admin: 12/19/16 18:42 Dose: 100 mls/hr Morphine Sulfate (Morphine) 1 mg IVP Q6H PRN PRN Reason: Pain, severe (8-10) Last Admin: 12/19/16 16:24 Dose: 1 mg Ondansetron HCl (Zofran Inj) 4 mg IVP Q6H PRN PRN Reason: Nausea/Vomiting Saccharomyces Boulardii (Florastor) 250 mg PO BID [facility] Last Admin: 12/19/16 17:41 Dose: 250 mg Venlafaxine HCl (Effexor Xr) 75 mg PO DAILY [facility] Last Admin: 12/19/16 10:36 Dose: 75 mg - Labs Labs: 12/19/16 08:04 12/19/16 08:04 Attending/Attestation - Attestation I have personally seen and examined this patient.: Yes I have fully participated in the care of the patient.: Yes I have reviewed all pertinent clinical information, including history, physical exam and plan: Yes Notes (Text): 12/19/16 18:55 Patient was seen and examined at bedside with the resident Still complains of abdominal pain but it is improving Patient had diet advanced as tolerated We'll continue IV antibiotics Surgery and GI evaluation and follow-up seen in appreciated Discharge planning if the patient remains afebrile overnight I discussed the plan of care with the resident and agree with the assessment and recommended above.
[2016-12-20 00:23] VITALS: O2SAT 96
[2016-12-20] MEDS: Piperacill/Tazo 3.375gm in Dex 3.375 GM/50 ML BAG IVPB SCH ×3 (00:45→11:41)
[2016-12-20] MEDS: metroNIDAZOLE IV 500 mg/100 ml 500 MG/100 ML BAG IVPB SCH ×2 (00:52→09:12)
[2016-12-20 07:19] LABS: BASO % 0.5 % (0.0-2.0); EOS # 0.2 K/uL (0.0-0.7); EOS % 1.8 % (0.0-4.0); HEMOGLOBIN 12.9 g/dL (12.0-18.0); LYMPH # 1.8 K/uL (1.0-4.3); LYMPH % 18.6 % (20.0-40.0); MEAN CELL VOLUME 88.4 fL (80.0-94.0); MEAN CORPUSCULAR HEMOGLOBIN 29.7 pg (27.0-31.0); MEAN CORPUSCULAR HGB CONC 33.6 g/dL (33.0-37.0); MEAN PLATELET VOLUME 7.8 fL (7.2-11.7); MONO # 1.4 K/uL (0.0-0.8); MONO % 14.1 % (0.0-10.0); NEUT # 6.3 K/uL (1.8-7.0); NRBC % 0.1 % (0.0-2.0); RBC 4.36 Mil/uL (4.40-5.90); RED CELL DISTRIBUTION WIDTH 12.9 % (11.5-14.5); WHITE BLOOD COUNT 9.7 K/uL (4.8-10.8)
[2016-12-20 07:35] LABS: ALBUMIN 3.3 g/dL (3.5-5.0)
[2016-12-20 07:37] LABS: GFR AFRICAN-AMERICAN > 60; GFR NON-AFRICAN AMERICAN > 60
[2016-12-20 07:38] LABS: ALT/SGPT 29 U/L (21-72); AST/SGOT 19 U/L (17-59); BLOOD UREA NITROGEN 7 mg/dL (9-20); CALCIUM 8.4 mg/dl (8.6-10.4)
[2016-12-20 07:44] LABS: ALB/GLOB RATIO 0.9 (1.0-2.1)
[2016-12-20 08:10] VITALS: BP 125/79; PULSE 62; TEMP 98
--- NOTE | 2016-12-20 08:18 | CP.PCM.PN ---
Subjective - Date & Time of Evaluation Date of Evaluation: 12/20/16 Time of Evaluation: 06:20 - Subjective Subjective: General Surgery Note Patient was seen and examined at bedside in no acute distress. Patient reports that he is doing well and has no new complaints. Patient reports that his stool are more formed/solid and less watery with decrease frequency. Patient admits to very mild LLQ abdominal pain and denies nausea, vomiting, dizziness, chills, fever and headache. Patient is tolerating diet well and ambulating. Objective - Vital Signs/Intake and Output Vital Signs (last 24 hours): Temp Pulse Resp BP Pulse Ox 98 F 62 20 125/79 96 12/20/16 08:09 12/20/16 08:09 12/20/16 08:09 12/20/16 08:09 12/20/16 08:09 Intake and Output: 12/20/16 12/20/16 06:59 18:59 Intake Total 500 Balance 500 - Medications Medications: Current Medications Acetaminophen (Tylenol 325mg Tab) 650 mg PO Q6 [facility] Last Admin: 12/20/16 05:38 Dose: 650 mg Amlodipine Besylate (Norvasc) 5 mg PO DAILY [facility] Last Admin: 12/19/16 10:21 Dose: 5 mg Famotidine (Pepcid) 20 mg PO BID [facility] Last Admin: 12/19/16 17:42 Dose: 20 mg Metronidazole (Flagyl) 500 mg in 100 mls @ 100 mls/hr IVPB Q8H [facility] Last Admin: 12/20/16 00:52 Dose: 100 mls/hr Piperacillin Sod/Tazobactam Sod (Zosyn 3.375 Gm Iv Premix) 3.375 gm in 50 mls @ 100 mls/hr IVPB Q6H [facility] Last Admin: 12/20/16 05:42 Dose: 100 mls/hr Morphine Sulfate (Morphine) 1 mg IVP Q6H PRN PRN Reason: Pain, severe (8-10) Last Admin: 12/19/16 22:19 Dose: 1 mg Ondansetron HCl (Zofran Inj) 4 mg IVP Q6H PRN PRN Reason: Nausea/Vomiting Saccharomyces Boulardii (Florastor) 250 mg PO BID [facility] Last Admin: 12/19/16 17:41 Dose: 250 mg Venlafaxine HCl (Effexor Xr) 75 mg PO DAILY [facility] Last Admin: 12/19/16 10:36 Dose: 75 mg - Labs Labs: 12/20/16 06:53 12/20/16 06:53 - Constitutional Appears: Well, No Acute Distress - Head Exam Head Exam: ATRAUMATIC, NORMAL INSPECTION - Eye Exam Eye Exam: EOMI, Normal appearance - ENT Exam ENT Exam: Mucous Membranes Moist, Normal Exam - Respiratory Exam Respiratory Exam: Clear to Ausculation Bilateral, NORMAL BREATHING PATTERN - Cardiovascular Exam Cardiovascular Exam: REGULAR RHYTHM, +S1, +S2 - GI/Abdominal Exam GI & Abdominal Exam: Soft, Tenderness, Normal Bowel Sounds Additional comments: Mild LLQ abdominal tenderness - Extremities Exam Extremities Exam: Normal Capillary Refill, Normal Inspection. absent: Calf Tenderness, Tenderness - Neurological Exam Neurological Exam: Alert, Awake, Oriented x3 - Psychiatric Exam Psychiatric exam: Normal Affect, Normal Mood - Skin Skin Exam: Dry, Normal Color, Warm Assessment and Plan (1) Acute diverticulitis Assessment & Plan: Stable No surgical intervention at this time Switch to PO antibiotics for discharge Patient is stable for discharge from surgical standpoint Recommend follow up with Dr. Vazquez as outpatient to discuss surgical options Status: Acute
[2016-12-20] MEDS: Saccharomyces Boulardi 250 mg Cap PO SCH (09:11)
[2016-12-20] MEDS: Venlafaxine 75 mg ER Cap PO SCH (09:11)
--- NOTE | 2016-12-20 21:59 | CP.PCM.DIS ---
<Saud Vines - Last Filed: 12/20/16 22:05> Provider - Provider Date of Admission: 12/17/16 11:08 Attending physician: Sean Baum MD Time Spent in preparation of Discharge (in minutes): 45 Diagnosis - Discharge Diagnosis (1) Acute diverticulitis Status: Acute Hospital Course - Lab Results Lab Results: Micro Results 12/17/16 11:30 Urine Urine Culture - Final No Growth (<1,000 CFU/ML) Most Recent Lab Values WBC 9.7 K/uL (4.8-10.8) 12/20/16 06:53 RBC 4.36 Mil/uL (4.40-5.90) L 12/20/16 06:53 Hgb 12.9 g/dL (12.0-18.0) 12/20/16 06:53 Hct 38.5 % (35.0-51.0) 12/20/16 06:53 MCV 88.4 fL (80.0-94.0) 12/20/16 06:53 MCH 29.7 pg (27.0-31.0) 12/20/16 06:53 MCHC 33.6 g/dL (33.0-37.0) 12/20/16 06:53 RDW 12.9 % (11.5-14.5) 12/20/16 06:53 Plt Count 381 K/uL (130-400) 12/20/16 06:53 MPV 7.8 fL (7.2-11.7) 12/20/16 06:53 Neut % (Auto) 65.0 % (50.0-75.0) 12/20/16 06:53 Lymph % (Auto) 18.6 % (20.0-40.0) L 12/20/16 06:53 [place] % (Auto) 14.1 % (0.0-10.0) H 12/20/16 06:53 Eos % (Auto) 1.8 % (0.0-4.0) 12/20/16 06:53 Baso % (Auto) 0.5 % (0.0-2.0) 12/20/16 06:53 Neut # 6.3 K/uL (1.8-7.0) 12/20/16 06:53 Lymph # 1.8 K/uL (1.0-4.3) 12/20/16 06:53 [place] # 1.4 K/uL (0.0-0.8) H 12/20/16 06:53 Eos # 0.2 K/uL (0.0-0.7) 12/20/16 06:53 Baso # 0.0 K/uL (0.0-0.2) 12/20/16 06:53 Sodium 136 mmol/L (132-148) 12/20/16 06:53 Potassium 3.8 mmol/L (3.6-5.2) 12/20/16 06:53 Chloride 98 mmol/L (98-107) 12/20/16 06:53 Carbon Dioxide 25 mmol/L (22-30) 12/20/16 06:53 Anion Gap 17 (10-20) 12/20/16 06:53 BUN 7 mg/dL (9-20) L 12/20/16 06:53 Creatinine 0.9 MG/DL (0.8-1.5) 12/20/16 06:53 Est GFR ( Amer) > 60 12/20/16 06:53 Est GFR (Non-Af Amer) > 60 12/20/16 06:53 Random Glucose 91 mg/dL (75-110) 12/20/16 06:53 Lactic Acid 0.9 mmol/L (0.7-2.1) 12/17/16 06:59 Calcium 8.4 mg/dl (8.6-10.4) L 12/20/16 06:53 Phosphorus 3.1 mg/dL (2.5-4.5) 12/19/16 08:04 Magnesium 2.1 mg/dL (1.6-2.3) 12/19/16 08:04 Total Bilirubin 0.8 mg/dL (0.2-1.3) 12/20/16 06:53 AST 19 U/L (17-59) 12/20/16 06:53 ALT 29 U/L (21-72) 12/20/16 06:53 Alkaline Phosphatase 48 U/L (38-126) 12/20/16 06:53 Total Protein 6.8 g/dL (6.3-8.3) 12/20/16 06:53 Albumin 3.3 g/dL (3.5-5.0) L 12/20/16 06:53 Globulin 3.5 gm/dL (2.2-3.9) 12/20/16 06:53 Albumin/Globulin Ratio 0.9 (1.0-2.1) L 12/20/16 06:53 Lipase 145 U/L (23-300) 12/16/16 12:28 Urine Color Yellow (YELLOW) 12/16/16 13:42 Urine Clarity Clear (Clear) 12/16/16 13:42 Urine pH 6.0 (5.0-8.0) 12/16/16 13:42 Ur Specific [place] 1.019 (1.003-1.030) 12/16/16 13:42 Urine Protein 1+ mg/dL (NEGATIVE) H 12/16/16 13:42 Urine Glucose (UA) Normal mg/dL (Normal) 12/16/16 13:42 Urine Ketones Negative mg/dL (NEGATIVE) 12/16/16 13:42 Urine Blood 1+ (NEGATIVE) H 12/16/16 13:42 Urine Nitrate Negative (NEGATIVE) 12/16/16 13:42 Urine Bilirubin Negative (NEGATIVE) 12/16/16 13:42 Urine Urobilinogen Normal mg/dL (0.2-1.0) 12/16/16 13:42 Ur Leukocyte Esterase Neg Gale/uL (Negative) 12/16/16 13:42 Urine WBC (Auto) 1 /hpf (0-5) 12/16/16 13:42 Urine RBC (Auto) 7 /hpf (0-3) H 12/16/16 13:42 Stool Leukocytes, Qual Negative (NEGATIVE) 12/17/16 Unknown C. difficile Ag & Toxin Negative (NEGATIVE) 12/18/16 06:00 Hepatitis A IgM Ab Negative (NEGATIVE) 12/18/16 16:41 Hep Bs Antigen Negative (NEGATIVE) 12/18/16 16:41 Hep B Core IgM Ab Negative (NEGATIVE) 12/18/16 16:41 Hepatitis C Antibody Negative (NEGATIVE) 12/18/16 16:41 - Hospital Course Hospital Course: As per admission documentation HPI: Patient is a 41 year old male with past medical history significant for diverticulitis (dx in 2016), hemorrhoids/anal fissure, uncontrolled HTN and anxiety who presented to the ED today with complaint of severe left lower quadrant abdominal pain that began 2 days ago. The pain is described to be constant and stabbing in nature, currently 8/10, but has been a 10/10 at its worse yesterday without any radiation. He reports exacerbation of the pain after eating solid foods and he experiences mild relief following a bowel movement and minimal/temporary relief with Advil 200mg (2 tablets) at home. Patient states that the pain came on shortly after eating a cheeseburger & fries two nights ago. The pain was initially "crampy" in nature, then continued to persist. Other notable meals patient had since onset of pain, include an entree of chicken & rice at a restaurant last night and tomato soup today. He does continue to have an appetite, but has been unable to tolerate food due to abdominal pain. Furthermore, patient describes the character of the pain to be very similar in nature to his prior flare ups of diverticulitis, however this current episode has been the worst in severity. He reports feelings of fever ( Tmax 104 F, yesterday), chills, night sweats, and generalized fatigue in association. Patient is otherwise in no acute distress. Patient denies signs of chest pain, palpitations, SOB, headache, dizziness, rectal bleeding, nausea, vomiting, urinary changes, recent weight loss, sick contacts or recent travels. No other complaints are noted at this time. Patient was admitted on 12/16/2016 for a 1 day history of profuse diarrhea with the consideration of diverticulitis. Patient has a history of diverticulitis episodes that were handled with IV antibiotics in the emergency room. GI consult was placed to Dr. Ephraim Arnett, who agreed with medical team's antimicrobial management and recommended a surgical consult due to the frequency of episodes and that the patient follow up with a colonoscopy outpatient after resolution of this episode. Surgery consult was placed to Dr. Shashank Vazquez who recommended against surgery at this time and suggested the patient follow up with him outpatient to discuss elective surgical options. On day 2 of hospitalization, the patient began to spike nightly fevers (Tmax = 102.9). Patient was held despite improving lower GI symptoms/advancing PO diet due to fevers and antimicrobial therapy was continued. On day 6 of hospitalization, the patient was afebrile overnight and is now cleared by the medical team to be discharged to home. It is recommended that the patient follow up at the [facility] and call to make an appointment at [phone] to establish care. Importance of follow up colonoscopy stressed to patient. Patient is currently without insurance and was encouraged to complete paperwork to establish mariela care. Discharge Instructions: Please discharge patient home, as per Dr. Baum. Patient is to continue medications as instructed. Patient is to follow up with his Primary Medical Doctor in 1 week. Patient is to follow up with Melquiades in 1 week. Patient is to follow up with Dr. Vazquez, as needed. If symptoms worsen, patient is to return to the hospital for further evaluation and treatment. Instructions were explained to the patient. Patient understands and agrees. Discharge medications: Ciprofloxacin 500 mg BID x 7 days Flagyl 500 mg TID x 7 days Norvasc 5 mg PO daily x 30 days Florastor 250 mg PO BID daily x 7 days Effexor Xr 75 mg PO daily x days Continue Home Medications: Albuterol HFA BID Ferrous Sulfate 325mg PO daily Hydroxychloroquine 200 mg PO BID Cellcept Cap 250 mg PO TID Prednisone 4 mg PO Daily - Date & Time of H&P Date of H&P: 12/16/16 Time of H&P: 20:33 Discharge Exam - Head Exam Head Exam: ATRAUMATIC, NORMAL INSPECTION - Respiratory Exam Respiratory Exam: Clear to PA & Lateral, NORMAL BREATHING PATTERN. absent: Accessory Muscle Use, Respiratory Distress - Cardiovascular Exam Cardiovascular Exam: REGULAR RHYTHM, +S1, +S2 - GI/Abdominal Exam GI & Abdominal Exam: Normal Bowel Sounds, Tenderness (Improved, but filter tank tender to palpation in the LLQ). absent: Distended, Firm, Guarding - Neurological Exam Neurological exam: Alert, Oriented x3 - Psychiatric Exam Psychiatric exam: Normal Affect, Normal Mood - Skin Skin Exam: Dry, Normal Color, Warm Discharge Plan - Discharge Medications Prescriptions: amLODIPine [Norvasc] 5 mg PO DAILY 30 Days Ciprofloxacin [Cipro] 500 mg PO BID 7 Days metroNIDAZOLE [Flagyl] 500 mg PO TID 7 Days Saccharomyces Boulardi [Florastor] 250 mg PO BID 7 Days Venlafaxine [Effexor XR] 75 mg PO DAILY 30 Days - Follow Up Plan Condition: FAIR Disposition: HOME/ ROUTINE Patient education suggested?: Yes Instructions: Diverticulitis (DC) Additional Instructions: Please discharge patient home, as per Dr. Baum. Patient is to continue medications as instructed. Patient is to follow up with his Primary Medical Doctor in 1 week. Patient is to follow up with Melquiades in 1 week. Patient is to follow up with Dr. Vazquez, as needed. If symptoms worsen, patient is to return to the hospital for further evaluation and treatment. Instructions were explained to the patient. Patient understands and agrees. Discharge medications: Ciprofloxacin 500 mg BID x 7 days Flagyl 500 mg TID x 7 days Norvasc 5 mg PO daily x 30 days Florastor 250 mg PO BID daily x 7 days Effexor Xr 75 mg PO daily x days Continue Home Medications: Albuterol HFA BID Ferrous Sulfate 325mg PO daily Hydroxychloroquine 200 mg PO BID Cellcept Cap 250 mg PO TID Prednisone 4 mg PO Daily Referrals: Shashank Vazquez MD [Staff Provider] - Ephraim Arnett MD [Staff Provider] - Juju Diaz MD [Staff Provider] - <Sean Baum - Last Filed: 12/21/16 18:08> Provider - Provider Date of Admission: 12/17/16 11:08 Attending physician: Sean Baum MD Hospital Course - Lab Results Lab Results: Micro Results 12/17/16 11:30 Urine Urine Culture - Final No Growth (<1,000 CFU/ML) Most Recent Lab Values WBC 9.7 K/uL (4.8-10.8) 12/20/16 06:53 RBC 4.36 Mil/uL (4.40-5.90) L 12/20/16 06:53 Hgb 12.9 g/dL (12.0-18.0) 12/20/16 06:53 Hct 38.5 % (35.0-51.0) 12/20/16 06:53 MCV 88.4 fL (80.0-94.0) 12/20/16 06:53 MCH 29.7 pg (27.0-31.0) 12/20/16 06:53 MCHC 33.6 g/dL (33.0-37.0) 12/20/16 06:53 RDW 12.9 % (11.5-14.5) 12/20/16 06:53 Plt Count 381 K/uL (130-400) 12/20/16 06:53 MPV 7.8 fL (7.2-11.7) 12/20/16 06:53 Neut % (Auto) 65.0 % (50.0-75.0) 12/20/16 06:53 Lymph % (Auto) 18.6 % (20.0-40.0) L 12/20/16 06:53 [place] % (Auto) 14.1 % (0.0-10.0) H 12/20/16 06:53 Eos % (Auto) 1.8 % (0.0-4.0) 12/20/16 06:53 Baso % (Auto) 0.5 % (0.0-2.0) 12/20/16 06:53 Neut # 6.3 K/uL (1.8-7.0) 12/20/16 06:53 Lymph # 1.8 K/uL (1.0-4.3) 12/20/16 06:53 [place] # 1.4 K/uL (0.0-0.8) H 12/20/16 06:53 Eos # 0.2 K/uL (0.0-0.7) 12/20/16 06:53 Baso # 0.0 K/uL (0.0-0.2) 12/20/16 06:53 Sodium 136 mmol/L (132-148) 12/20/16 06:53 Potassium 3.8 mmol/L (3.6-5.2) 12/20/16 06:53 Chloride 98 mmol/L (98-107) 12/20/16 06:53 Carbon Dioxide 25 mmol/L (22-30) 12/20/16 06:53 Anion Gap 17 (10-20) 12/20/16 06:53 BUN 7 mg/dL (9-20) L 12/20/16 06:53 Creatinine 0.9 MG/DL (0.8-1.5) 12/20/16 06:53 Est GFR ( Amer) > 60 12/20/16 06:53 Est GFR (Non-Af Amer) > 60 12/20/16 06:53 Random Glucose 91 mg/dL (75-110) 12/20/16 06:53 Lactic Acid 0.9 mmol/L (0.7-2.1) 12/17/16 06:59 Calcium 8.4 mg/dl (8.6-10.4) L 12/20/16 06:53 Phosphorus 3.1 mg/dL (2.5-4.5) 12/19/16 08:04 Magnesium 2.1 mg/dL (1.6-2.3) 12/19/16 08:04 Total Bilirubin 0.8 mg/dL (0.2-1.3) 12/20/16 06:53 AST 19 U/L (17-59) 12/20/16 06:53 ALT 29 U/L (21-72) 12/20/16 06:53 Alkaline Phosphatase 48 U/L (38-126) 12/20/16 06:53 Total Protein 6.8 g/dL (6.3-8.3) 12/20/16 06:53 Albumin 3.3 g/dL (3.5-5.0) L 12/20/16 06:53 Globulin 3.5 gm/dL (2.2-3.9) 12/20/16 06:53 Albumin/Globulin Ratio 0.9 (1.0-2.1) L 12/20/16 06:53 Lipase 145 U/L (23-300) 12/16/16 12:28 Urine Color Yellow (YELLOW) 12/16/16 13:42 Urine Clarity Clear (Clear) 12/16/16 13:42 Urine pH 6.0 (5.0-8.0) 12/16/16 13:42 Ur Specific [place] 1.019 (1.003-1.030) 12/16/16 13:42 Urine Protein 1+ mg/dL (NEGATIVE) H 12/16/16 13:42 Urine Glucose (UA) Normal mg/dL (Normal) 12/16/16 13:42 Urine Ketones Negative mg/dL (NEGATIVE) 12/16/16 13:42 Urine Blood 1+ (NEGATIVE) H 12/16/16 13:42 Urine Nitrate Negative (NEGATIVE) 12/16/16 13:42 Urine Bilirubin Negative (NEGATIVE) 12/16/16 13:42 Urine Urobilinogen Normal mg/dL (0.2-1.0) 12/16/16 13:42 Ur Leukocyte Esterase Neg Gale/uL (Negative) 12/16/16 13:42 Urine WBC (Auto) 1 /hpf (0-5) 12/16/16 13:42 Urine RBC (Auto) 7 /hpf (0-3) H 12/16/16 13:42 Stool Leukocytes, Qual Negative (NEGATIVE) 12/17/16 Unknown C. difficile Ag & Toxin Negative (NEGATIVE) 12/18/16 06:00 Hepatitis A IgM Ab Negative (NEGATIVE) 12/18/16 16:41 Hep Bs Antigen Negative (NEGATIVE) 12/18/16 16:41 Hep B Core IgM Ab Negative (NEGATIVE) 12/18/16 16:41 Hepatitis C Antibody Negative (NEGATIVE) 12/18/16 16:41 Attending/Attestation - Attestation I have personally seen and examined this patient.: Yes I have fully participated in the care of the patient.: Yes I have reviewed all pertinent clinical information, including history, physical exam and plan: Yes Notes (Text): 12/21/16 18:07 Patient was seen and examined at bedside with the resident. Patient is feeling much better Abdominal pain is improving Patient is tolerating diet We will discharge the patient on oral antibiotics Discharge instructions given to the patient to follow-up with the gastroenterology and surgery as outpatient Patient will need a colonoscopy and a possible colectomy for recurrent diverticulitis. Discussed the plan of care with the patient and he verbalized understanding I discussed the plan of care with the resident and agree with the discharge note by the resident.
== END 2016-12-20 15:45 | disposition home or self-care (01) | DRG 183 ==
LOC: C.ER 11:20 → C.9E 14:41 → C.3T 18:04 → OBSVTOIN 12-17 11:08
PROVIDERS: ADMIT Family Medicine; ATTEND Internal Medicine
DX: K57.32 Diverticulitis of large intestine without perforation or abscess without bleeding (principal); I10 Essential (primary) hypertension; F41.1 Generalized anxiety disorder; K60.2 Anal fissure, unspecified; K64.9 Unspecified hemorrhoids; Z82.3 Family history of stroke; Z82.49 Family history of ischemic heart disease and other diseases of the circulatory system; Z87.891 Personal history of nicotine dependence

== ENCOUNTER 2018-08-09 08:32 | Inpatient (IN) | payer BC, OTHER ==
[2018-08-09] MEDS ORDERED: Sodium Chloride 0.9% 1,000 ML IV ONE (08:52)
--- NOTE | 2018-08-09 08:57 | C.PDOC ---
History Of Present Illness 43 y/o male with a PMHx of alcohol abuse and diverticulitis presents to the ED complaining of left-sided abdominal pain since yesterday. He also reports fever at home. No associated nausea, vomiting, or diarrhea. Otherwise patient denies any chest pain, SOB, weakness, or urinary complaints. Time Seen by Provider: 08/09/18 08:34 Chief Complaint (Nursing): Abdominal Pain History Per: Patient History/Exam Limitations: no limitations Onset/Duration Of Symptoms: Days (x2) Current Symptoms Are (Timing): Still Present Location Of Pain/Discomfort: LUQ, LLQ Quality Of Discomfort: "Pain" Associated Symptoms: Fever Past Medical History Reviewed: Historical Data, Nursing Documentation, Vital Signs Vital Signs: Last Vital Signs Temp 98.9 F 08/09/18 08:40 Pulse 87 08/09/18 08:40 Resp 18 08/09/18 08:40 BP 132/75 08/09/18 08:40 Pulse Ox 97 08/09/18 08:40 - Medical History PMH: Anxiety, Diverticulitis, HTN Family History: States: Unknown Family Hx - Social History Hx Alcohol Use: No Hx Substance Use: No - Immunization History Hx Tetanus Toxoid Vaccination: No Hx Influenza Vaccination: No Hx Pneumococcal Vaccination: No Review Of Systems Except As Marked, All Systems Reviewed And Found Negative. Constitutional: Positive for: Fever. Negative for: Sweats, Malaise Eyes: Negative for: Vision Change Cardiovascular: Negative for: Chest Pain Respiratory: Negative for: Cough, Shortness of Breath Gastrointestinal: Positive for: Abdominal Pain. Negative for: Vomiting, Diarrhea, Melena, Hematochezia Musculoskeletal: Negative for: Neck Pain, Back Pain Skin: Negative for: Rash Neurological: Negative for: Weakness, Numbness Physical Exam - Physical Exam Appears: Well, Non-toxic, No Acute Distress Skin: Normal Color, Warm, No Rash Head: Atraumatic, Normacephalic Eye(s): bilateral: Normal Inspection, PERRL, EOMI Oral Mucosa: Moist Neck: Normal ROM Chest: Symmetrical Cardiovascular: Rhythm Regular, No Murmur Respiratory: Normal Breath Sounds, No Accessory Muscle Use Gastrointestinal/Abdominal: Soft, Tenderness (Left-sided abdominal tenderness), No Guarding, No Rebound Back: No CVA Tenderness Extremity: Bilateral: Atraumatic, Normal Color And Temperature, Normal ROM Pulses: Left Radial: Normal, Right Radial: Normal Neurological/Psych: Oriented x3, Normal Speech ED Course And Treatment - Laboratory Results Result Diagrams: 08/09/18 09:08 08/09/18 09:08 O2 Sat by Pulse Oximetry: 97 (RA) Pulse Ox Interpretation: Normal - CT Scan/US CT Abd/Pelvis Other Rad Studies (CT/US): Read By Radiologist, Radiology Report Reviewed CT/US Interpretation: Accession No. : [id number]. Patient Name / ID : BRAYAN DAY / [id number]. Exam Date : 08/09/2018 10:43:11 ( Approved ). Study Comment : Sex / Age : M / 43Y. Creator : Concepcion Gill. Dictator : Grisel Peralta MD. Labor Crew Supervisor : Grommet Worker : Grisel Peralta MD. Approver2 : Report Date : 08/09/2018 11:04:40. My Comment : . Date of service: 08/09/2018. PROCEDURE: CT Abdomen and Pelvis with contrast. HISTORY: left sided abd pain ho of diverticulitis. COMPARISON: 12/16/2016. TECHNIQUE: CT scan of the abdomen and pelvis was performed after administration of intravenous contrast. Oral contrast was not administered. Coronal and sagittal reformatted images were obtained. Contrast dose: 100 ml Visipaque 320. Radiation dose: Total exam DLP = 837.04 mGy-cm. This CT exam was performed using one or more of the following dose reduction techniques: Automated exposure control, adjustment of the mA and/or kV according to patient size, and/or use of iterative reconstruction technique. FINDINGS: LOWER THORAX: There is subsegmental atelectasis in the lower lobes. LIVER: Mild hepatomegaly and fatty liver. Normal homogeneous enhancement. No gross lesion or ductal dilatation. GALLBLADDER AND BILE DUCTS: Well distended. No calcified gallstones, wall thickening or pericholecystic fluid. PANCREAS: Normal in size with homogeneous enhancement. No gross lesion or ductal dilatation. SPLEEN: Normal in size and appearance. ADRENALS: No discrete nodule. KIDNEYS AND URETERS: Normal in size. Normal homogeneous enhancement. No hydronephrosis. No solid mass. VASCULATURE: No aortic aneurysm. There are no aortic atherosclerotic calcifications or mural plaque present. BOWEL: Evaluation of the bowel is limited in the absence of oral contrast. The small bowel loops are normal in caliber. There is left colonic diverticulosis. There is segmental mild circumferential mural thickening in the mid descending colon. There is inflammation of a medial diverticulum in the mid descending colon with mild wall enhancement and significant inflammatory changes in the surrounding mesenteric fat. No evidence for micro perforation or abscess. No bowel wall thickening or obstruction. APPENDIX: The appendix is retrocecal, pointing cranially and normal in appearance. PERITONEUM: No free fluid. No free air. LYMPH NODES: No enlarged lymph nodes. BLADDER: Well distended and normal in appearance. REPRODUCTIVE: The prostate gland is normal in size. BONES: No acute fracture. Within normal limits for the patient's age. OTHER FINDINGS: There is a small sliding hiatal hernia. IMPRESSION: Acute uncomplicated diverticulitis involving the mid descending colon. No micro perforation or abscess. Medical Decision Making Medical Decision Making: Impression: Abdominal pain, hx of diverticulitis Plan: Patient given 1L NS IV fluids and 975mg PO Tylenol. Blood work and UA ordered and reviewed. Pending CT Abd/Pelvis with IV contrast. Labs and imaging reviewed. CT shows acute diverticulitis. Patient given IV Toradol and IV zosyn. 11:[address] Bridges, patient accepted for admission. persistnet pain unable to take po needs iv antibiotics Disposition Counseled Patient/Family Regarding: Studies Performed, Diagnosis - Disposition Disposition: HOSPITALIZED Disposition Time: 11:22 Condition: STABLE - Clinical Impression Clinical Impression: Diverticulitis - Scribe Statement The provider has reviewed the documentation as recorded by the Kamila Valdez Provider Attestation: All medical record entries made by the Kamila were at my direction and personally dictated by me. I have reviewed the chart and agree that the record accurately reflects my personal performance of the history, physical exam, medical decision making, and the department course for this patient. I have also personally directed, reviewed, and agree with the discharge instructions and disposition. Decision To Admit - Pt Status Changed To: Hospital Disposition Of: Inpatient - Admit Certification Admit to Inpatient:: After my assessment, the patient will require hospitalization for at least two midnights. This is because of the severity of symptoms shown, intensity of services needed, and/or the medical risk in this patient being treated as an outpatient. - InPatient: Physician Admission Certification:: jeremiah iv antibiotics - . Bed Request Type: Regular Admitting Physician: Daniel Bridges Jr. Patient Diagnosis: Diverticulitis
[2018-08-09 09:02] VITALS: BMI 26.6
[2018-08-09 09:13] LABS: BASO # 0.2 K/uL (0.0-0.2); BASO % 1.5 % (0.0-2.0); EOS # 0.3 K/uL (0.0-0.7); EOS % 2.5 % (0.0-4.0); HEMOGLOBIN 12.4 g/dL (12.0-18.0); LYMPH # 1.6 K/uL (1.0-4.3); LYMPH % 12.1 % (20.0-40.0); MEAN CORPUSCULAR HEMOGLOBIN 27.1 pg (27.0-31.0); MEAN CORPUSCULAR HGB CONC 33.4 g/dL (33.0-37.0); MEAN PLATELET VOLUME 8.1 fL (7.2-11.7); MONO # 1.1 K/uL (0.0-0.8); MONO % 8.3 % (0.0-10.0); NEUT # 10.1 K/uL (1.8-7.0); NEUT % 75.6 % (50.0-75.0); RBC 4.56 Mil/uL (4.40-5.90); RED CELL DISTRIBUTION WIDTH 15.3 % (11.5-14.5); WHITE BLOOD COUNT 13.3 K/uL (4.8-10.8)
[2018-08-09 09:14] LABS: URINE BILIRUBIN NEGATIVE (NEGATIVE); URINE BLOOD NEGATIVE (NEGATIVE); URINE CLARITY Clear (Clear); URINE COLOR Yellow (YELLOW); URINE GLUCOSE (UA) NORMAL (Normal); URINE LEUKOCYTE ESTERASE NEG Leu/uL (Negative); URINE PROTEIN NEGATIVE (NEGATIVE); URINE UROBILINOGEN NORMAL mg/dL (0.2-1.0)
[2018-08-09] MEDS ORDERED: Sodium Chloride 0.9% 1,000 ML ONE (09:16)
[2018-08-09 09:25] LABS: ALB/GLOB RATIO 1.5 (1.0-2.1); ALBUMIN 4.3 g/dL (3.5-5.0); ALT/SGPT 37 U/L (21-72); AST/SGOT 135 U/L (17-59); BLOOD UREA NITROGEN 10 mg/dL (9-20); CALCIUM 8.8 mg/dl (8.6-10.4); GFR NON-AFRICAN AMERICAN > 60; LIPASE 120 U/L (23-300)
[2018-08-09 09:28] LABS: MEAN CELL VOLUME 81.1 fL (80.0-94.0)
[2018-08-09 09:43] LABS: INR 1.1; PROTHROMBIN TIME 12.2 SECONDS (9.7-12.2)
[2018-08-09] MEDS ORDERED: Iodixanol 320 MG/ML 100 ML BOTTLE IV ONE (10:24)
[2018-08-09] MEDS ORDERED: Piperacillin/Tazobact 3.375 gm 100 ML IVPB STA (11:19)
--- NOTE | 2018-08-09 11:21 | CT ---
Date of service: 08/09/2018 PROCEDURE: CT Abdomen and Pelvis with contrast HISTORY: left sided abd pain ho of diverticulitis COMPARISON: 12/16/2016 TECHNIQUE: CT scan of the abdomen and pelvis was performed after administration of intravenous contrast. Oral contrast was not administered. Coronal and sagittal reformatted images were obtained. Contrast dose: 100 ml Visipaque 320 Radiation dose: Total exam DLP = 837.04 mGy-cm. This CT exam was performed using one or more of the following dose reduction techniques: Automated exposure control, adjustment of the mA and/or kV according to patient size, and/or use of iterative reconstruction technique. FINDINGS: LOWER THORAX: There is subsegmental atelectasis in the lower lobes. LIVER: Mild hepatomegaly and fatty liver. Normal homogeneous enhancement. No gross lesion or ductal dilatation. GALLBLADDER AND BILE DUCTS: Well distended. No calcified gallstones, wall thickening or pericholecystic fluid. PANCREAS: Normal in size with homogeneous enhancement. No gross lesion or ductal dilatation. SPLEEN: Normal in size and appearance. ADRENALS: No discrete nodule. KIDNEYS AND URETERS: Normal in size. Normal homogeneous enhancement. No hydronephrosis. No solid mass. VASCULATURE: No aortic aneurysm. There are no aortic atherosclerotic calcifications or mural plaque present. BOWEL: Evaluation of the bowel is limited in the absence of oral contrast. The small bowel loops are normal in caliber. There is left colonic diverticulosis. There is segmental mild circumferential mural thickening in the mid descending colon. There is inflammation of a medial diverticulum in the mid descending colon with mild wall enhancement and significant inflammatory changes in the surrounding mesenteric fat. No evidence for micro perforation or abscess. No bowel wall thickening or obstruction. APPENDIX: The appendix is retrocecal, pointing cranially and normal in appearance. PERITONEUM: No free fluid. No free air. LYMPH NODES: No enlarged lymph nodes. BLADDER: Well distended and normal in appearance. REPRODUCTIVE: The prostate gland is normal in size. BONES: No acute fracture. Within normal limits for the patient's age. OTHER FINDINGS: There is a small sliding hiatal hernia. IMPRESSION: Acute uncomplicated diverticulitis involving the mid descending colon. No micro perforation or abscess.
[2018-08-09] MEDS ORDERED: Piperacillin/Tazobact 3.375 gm 100 ML IVPB ONE (11:32)
--- NOTE | 2018-08-09 13:02 | CP.PCM.HP ---
History of Present Illness - History of Present Illness History of Present Illness: CC: LUQ Abdominal Pain HPI: Patient is a 43 year old male with past medical history significant for recurrent diverticulitis (last episode hospitalized in [facility] in 04/07), hemorrhoids/anal fissure, HTN, anxiety, and alcohol abuse who presents to the ED today with complaint of severe left upper quadrant abdominal pain that began 2 days ago. The pain started out as a soreness and progressed to a severe throbbing pain that woke him from his sleep at 4am this morning. Patient describes the character of the pain to be very similar in nature to his prior flare ups of diverticulitis and therefore he came straight to the emergency ro om. Patient admits to fevers and chills and had a temperature of 100 F this morning at home. Patient is otherwise in no acute distress. Patient says the pain has decreased to 6/10 after the Toradol given to him. Patient is able to eat and denies any nausea, vomiting, constipation, or diarrhea. Patient does admit to bleeding from his hemorrhoids yesterday after having a bowel movement. Patient denies signs of chest pain, palpitations, SOB, headache, dizziness, or sick contacts. Of note, patient had been told in March during hospital admission to follow up with GI for possible surgical intervention 2/2 recurrent episodes of diverticulitis but did not follow up due to lack of insurance. 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 Quit smoking 15 years ago ( smoker 1 pack per 1-2days), former alcoholic ( 6 25oz [place]- light ever night plus 1.75L of vodka on weekends), he is currently in detox with [facility] in [facility] ([phone]) and has been sober for 38 days. Denies illicit drug use. Present on Admission - Present on Admission Any Indicators Present on Admission: No History of DVT/PE: No History of Uncontrolled Diabetes: No Urinary Catheter: No Decubitus Ulcer Present: No Review of Systems - Constitutional Constitutional: Chills, Fever - Cardiovascular Cardiovascular: absent: Leg Edema - Gastrointestinal Gastrointestinal: Abdominal Pain, Bloating, Cramping. absent: Constipation, [place] rrhea, Nausea, Vomiting - Genitourinary Genitourinary: absent: Dysuria - Musculoskeletal Musculoskeletal: absent: Numbness, Tingling - Integumentary Integumentary: absent: Rash - Neurological Neurological: absent: Weakness Past Patient History - Past Medical History & Family History Past Medical History?: Yes - Past Social History Smoking Status: Never Smoked - CARDIAC Hx Hypertension: Yes - MUSCULOSKELETAL/RHEUMATOLOGICAL Hx Falls: No - GASTROINTESTINAL Hx Diverticulitis: Yes - PSYCHIATRIC Hx Anxiety: Yes Hx Substance Use: No - SURGICAL HISTORY Hx Herniorrhaphy: Yes - ANESTHESIA Hx Anesthesia: Yes Hx Anesthesia Reactions: No Meds Allergies/Adverse Reactions: Allergies Allergy/AdvReac Type Severity Reaction Status Date / Time No Known Allergies Allergy Verified 08/09/18 08:37 Physical Exam - Constitutional Appears: Non-toxic, No Acute Distress - Head Exam Head Exam: ATRAUMATIC, NORMAL INSPECTION, NORMOCEPHALIC - Eye Exam Eye Exam: EOMI, Normal appearance - ENT Exam ENT Exam: Mucous Membranes Moist - Respiratory Exam Respiratory Exam: Clear to Auscultation Bilateral, NORMAL BREATHING PATTERN. absent: Rales, Rhonchi, Wheezes, Respiratory Distress, Stridor - Cardiovascular Exam Cardiovascular Exam: RRR, +S1, +S2 - GI/Abdominal Exam GI & Abdominal Exam: Hyperactive Bowel Sounds, Soft, Tenderness. absent: Firm, Guarding - Extremities Exam Extremities exam: Positive for: normal inspection. Negative for: tenderness - Back Exam Back exam: NORMAL INSPECTION - Neurological Exam Neurological exam: Alert, Oriented x3 - Psychiatric Exam Psychiatric exam: Normal Affect, Normal Mood - Skin Skin Exam: Intact, Normal Color, Warm Results - Vital Signs Recent Vital Signs: Last Vital Signs Temp 98.9 F 08/09/18 08:40 Pulse 69 08/09/18 11:34 Resp 18 08/09/18 11:34 BP 111/63 08/09/18 11:34 Pulse Ox 97 08/09/18 11:56 - Labs Result Diagrams: 08/09/18 09:08 08/09/18 09:08 Labs: Laboratory Results - last 24 hr 08/09/18 08/09/18 08/09/18 09:08 09:08 09:08 WBC 13.3 H RBC 4.56 Hgb 12.4 Hct 37.0 MCV 81.1 D MCH 27.1 MCHC 33.4 RDW 15.3 H Plt Count 296 MPV 8.1 Neut % (Auto) 75.6 H Lymph % (Auto) 12.1 L Angelina % (Auto) 8.3 Eos % (Auto) 2.5 Baso % (Auto) 1.5 Neut # (Auto) 10.1 H Lymph # (Auto) 1.6 Angelina # (Auto) 1.1 H Eos # (Auto) 0.3 Baso # (Auto) 0.2 PT 12.2 INR 1.1 APTT 42 H Sodium 137 Potassium 4.0 Chloride 103 Carbon Dioxide 26 Anion Gap 12 BUN 10 Creatinine 1.1 Est GFR ( Amer) > 60 Est GFR (Non-Af Amer) > 60 Random Glucose 117 H D Calcium 8.8 Total Bilirubin 0.6 AST 135 H ALT 37 Alkaline Phosphatase 51 Total Protein 7.2 Albumin 4.3 Globulin 2.9 Albumin/Globulin Ratio 1.5 Lipase 120 Urine Color Urine Clarity Urine pH Ur Specific [place] Urine Protein Urine Glucose (UA) Urine Ketones Urine Blood Urine Nitrate Urine Bilirubin Urine Urobilinogen Ur Leukocyte Esterase Urine RBC (Auto) 08/09/18 09:08 WBC RBC Hgb Hct MCV MCH MCHC RDW Plt Count MPV Neut % (Auto) Lymph % (Auto) Angel[place] % (Auto) Eos % (Auto) Baso % (Auto) Neut # (Auto) Lymph # (Auto) [place] # (Auto) Eos # (Auto) Baso # (Auto) PT INR APTT Sodium Potassium Chloride Carbon Dioxide Anion Gap BUN Creatinine Est GFR ( Amer) Est GFR (Non-Af Amer) Random Glucose Calcium Total Bilirubin AST ALT Alkaline Phosphatase Total Protein Albumin Globulin Albumin/Globulin Ratio Lipase Urine Color Yellow Urine Clarity Clear Urine pH 7.0 Ur Specific [place] 1.009 Urine Protein Negative Urine Glucose (UA) Normal Urine Ketones Negative Urine Blood Negative Urine Nitrate Negative Urine Bilirubin Negative Urine Urobilinogen Normal Ur Leukocyte Esterase Neg Urine RBC (Auto) < 1 Assessment & Plan - Assessment and Plan (Free Text) Assessment: Diverticulitis, recurrent episode Abd and Pelvis CT with IV contrast 08/09/18: acute uncomplicated diverticulitis involving the mid descending colon. no micro perforation or abscess GI, Dr. Magaña, consulted- help appreciated Meds: Cipro 400mg ivpb q12h Flagyl 500mg ivpb q8h Toradol 30mg ip q6h prn HTN Lisinopril 20mg po daily Clonidine .1mg po BID Generalized Anxiety Disorder Venlafaxine 75mpo daily Alcohol Use Disorder Vivitrol 380mg IM monthly (last dose 08/02/18) Prophylaxis scds Discussed with Dr. Bridges
[2018-08-09] MEDS: Ciprofloxacin 400mg/200ml D5W 400 MG/200 ML BAG IVPB SCH (14:38)
[2018-08-09] MEDS: metroNIDAZOLE IV 500 mg/100 ml 500 MG/100 ML BAG IVPB SCH (17:11)
[2018-08-10] MEDS: metroNIDAZOLE IV 500 mg/100 ml 500 MG/100 ML BAG IVPB SCH ×3 (00:15→17:04)
[2018-08-10] MEDS: Ciprofloxacin 400mg/200ml D5W 400 MG/200 ML BAG IVPB SCH ×2 (01:30→13:48)
[2018-08-10] MEDS ORDERED: Bisacodyl 5mg EC Tab PO ONE (06:41)
[2018-08-10 07:33] LABS: BASO # 0.1 K/uL (0.0-0.2); BASO % 0.6 % (0.0-2.0); EOS # 0.2 K/uL (0.0-0.7); EOS % 1.2 % (0.0-4.0); HEMOGLOBIN 12.2 g/dL (12.0-18.0); LYMPH # 1.7 K/uL (1.0-4.3); LYMPH % 13.3 % (20.0-40.0); MEAN CELL VOLUME 81.9 fL (80.0-94.0); MEAN PLATELET VOLUME 8.3 fL (7.2-11.7); MONO # 1.2 K/uL (0.0-0.8); MONO % 9.3 % (0.0-10.0); NEUT # 9.7 K/uL (1.8-7.0); NEUT % 75.6 % (50.0-75.0); RBC 4.53 Mil/uL (4.40-5.90); RED CELL DISTRIBUTION WIDTH 14.9 % (11.5-14.5); WHITE BLOOD COUNT 12.8 K/uL (4.8-10.8)
[2018-08-10 08:40] LABS: ALB/GLOB RATIO 1.3 (1.0-2.1); ALBUMIN 3.9 g/dL (3.5-5.0); ALT/SGPT 29 U/L (21-72); AST/SGOT 115 U/L (17-59); BLOOD UREA NITROGEN 10 mg/dL (9-20); GFR NON-AFRICAN AMERICAN > 60
--- NOTE | 2018-08-10 09:00 | PN ---
DATE: 08/10/2018 LOCATION: 353, bed A. SUBJECTIVE: This is a 43-year-old male, seen and examined in rounds late yesterday for GI consultation with intermittent complaint of abdominal pain with mild nausea, but no vomiting with slight dyspepsia on and off. No bowel movement was reported. No chest pain, palpitation, or significant shortness of breath, and no reported chills or fever this morning, but the patient had low grade fever. The entire chart is reviewed, including the most recent lab results, and the patient had leukocytosis, but normal hemoglobin and hematocrit with mildly elevated blood glucose level and increased AST to 135 with normal the rest of the liver function test that could be secondary to alcohol intake, most likely. PHYSICAL EXAMINATION: GENERAL: A 43-year-old male, awake, alert, oriented with less abdominal discomfort. VITAL SIGNS: Afebrile with pulse of 86, blood pressure of 140/72, respiratory rate 20-22. HEENT: Showed pale dry mucous membrane. Nonicteric sclerae. HEART: Positive S1 and S2. ABDOMEN: Soft with mild generalized tenderness. No mass or organomegaly. No rebound tenderness or guarding, but left-sided abdominal tenderness mainly in the left lower quadrant. Bowel sounds are hypoactive. EXTREMITIES: Without edema, clubbing, or cyanosis. NEUROLOGIC: No reported new neurological deficits, sensory or motor. IMPRESSION: 1. Diverticulosis with acute diverticulitis. 2. Known history of hypertension. 3. Known history of severe anxiety syndrome. SUGGESTIONS: 1. Agree with your plan. 2. Dulcolax p.o. 3. No aggressive GI workup in the meantime. 4. To consider colonoscopy as outpatient only when the patient is more stable clinically. 5. Further recommendation to follow. Rafael Rojas MD
[2018-08-10] MEDS: Venlafaxine 75 mg ER Cap PO SCH (09:50)
--- NOTE | 2018-08-10 13:46 | CP.PCM.PN ---
Subjective - Date & Time of Evaluation Date of Evaluation: 08/10/18 Time of Evaluation: 13:46 - Subjective Subjective: Medicine Progress Note - Dr Bridges's service Patient seen and examined at bedside. Per nursing no acute events overnight. Tmax 100.4. Patient states that he is tolerating some liquids however he does experience nausea after drinking. He says that abdominal pain has improved some. Last bowel movement was today and it was loose. Denies any other complaints at this time. Objective - Vital Signs/Intake and Output Vital Signs (last 24 hours): Temp Pulse Resp BP Pulse Ox 99.2 F 68 17 121/74 95 08/10/18 12:08 08/10/18 12:34 08/10/18 12:34 08/10/18 12:34 08/10/18 12:34 Intake and Output: 08/10/18 08/10/18 06:59 18:59 Intake Total 500 815 Balance 500 815 - Medications Medications: Current Medications Acetaminophen (Tylenol 325mg Tab) 650 mg PO Q6 PRN PRN Reason: Fever >100.4 F Last Admin: 08/10/18 10:34 Dose: 650 mg Clonidine HCl (Catapres) 0.1 mg PO BID ODIN Last Admin: 08/10/18 09:50 Dose: 0.1 mg Ciprofloxacin (Cipro 400mg/200ml Dsw) 400 mg in 200 mls @ 133 mls/hr IVPB Q12H ODIN; Protocol Last Admin: 08/10/18 01:30 Dose: 133 mls/hr Metronidazole (Flagyl) 500 mg in 100 mls @ 100 mls/hr IVPB Q8H ODIN; Protocol Last Admin: 08/10/18 08:17 Dose: 100 mls/hr Ketorolac Tromethamine (Toradol) 30 mg IVP Q6 PRN PRN Reason: Pain, moderate (4-7) Last Admin: 08/10/18 01:35 Dose: 30 mg Venlafaxine HCl (Effexor Xr) 75 mg PO DAILY ODIN Last Admin: 08/10/18 09:50 Dose: 75 mg - Labs Labs: 08/10/18 07:20 08/10/18 07:20 PT 12.2 SECONDS (9.7-12.2) 08/09/18 09:08 INR 1.1 08/09/18 09:08 APTT 42 SECONDS (21-34) H 08/09/18 09:08 - Constitutional Appears: Non-toxic, No Acute Distress - Head Exam Head Exam: ATRAUMATIC, NORMAL INSPECTION - Eye Exam Eye Exam: EOMI, Normal appearance - ENT Exam ENT Exam: Mucous Membranes Dry - Neck Exam Neck Exam: Full ROM - Respiratory Exam Respiratory Exam: Clear to Ausculation Bilateral, NORMAL BREATHING PATTERN. absent: Rales, Rhonchi, Wheezes - Cardiovascular Exam Cardiovascular Exam: REGULAR RHYTHM, +S1, +S2 - GI/Abdominal Exam GI & Abdominal Exam: Distended (Mild distention), Soft, Tenderness (LLQ). absent: Firm, Guarding, Rigid - Extremities Exam Extremities Exam: Full ROM, Normal Inspection - Back Exam Back Exam: NORMAL INSPECTION - Neurological Exam Neurological Exam: Alert, Awake, Oriented x3 - Psychiatric Exam Psychiatric exam: Normal Affect, Normal Mood - Skin Skin Exam: Dry, Normal Color, Warm Assessment and Plan - Assessment and Plan (Free Text) Assessment: Acute Diverticulitis, recurrent episode -Stable, Tmax 100.4 -Antibiotics: Cipro 400mg IVPB q12h, Flagyl 500mg IVPB q8H -Pain control: Toradol 30mg Q6 IVP prn pain -CT Abd and Pelvis with IV contrast 08/09/18: acute uncomplicated diverticulitis involving the mid descending colon. no micro perforation or abscess -Will add Solumedrol 125mg IVP, then 40mg Q12H daily -GI consulted, Dr. Magaña, help appreciated Hypertension Lisinopril 20mg po daily Clonidine .1mg po BID General Anxiety Disorder Venlafaxine 75mpo daily Alcohol Use Disorder Vivitrol 380mg IM monthly (last dose 08/02/18) GI/DVT Prophylaxis SCDs Plan discussed with Dr Cyrus Chacon DO PGY-2
[2018-08-10 16:10] VITALS: RESP 20
[2018-08-11] MEDS: metroNIDAZOLE IV 500 mg/100 ml 500 MG/100 ML BAG IVPB SCH ×2 (00:24→07:58)
[2018-08-11 00:44] VITALS: BP 145/89; PULSE 58; TEMP 97.6; O2SAT 94
[2018-08-11] MEDS: Ciprofloxacin 400mg/200ml D5W 400 MG/200 ML BAG IVPB SCH ×3 (02:54→14:23)
[2018-08-11 08:04] LABS: BASO % 0.2 % (0.0-2.0); HEMOGLOBIN 11.9 g/dL (12.0-18.0); LYMPH % 7.5 % (20.0-40.0); MEAN CORPUSCULAR HGB CONC 33.7 g/dL (33.0-37.0); MEAN PLATELET VOLUME 8.5 fL (7.2-11.7); MONO # 0.3 K/uL (0.0-0.8); MONO % 2.3 % (0.0-10.0); NEUT # 11.6 K/uL (1.8-7.0); NRBC % 0.1 % (0.0-2.0); PLATELET COUNT 291 K/uL (130-400); RBC 4.42 Mil/uL (4.40-5.90); RED CELL DISTRIBUTION WIDTH 14.9 % (11.5-14.5); WHITE BLOOD COUNT 12.9 K/uL (4.8-10.8)
[2018-08-11 08:23] LABS: ALB/GLOB RATIO 1.2 (1.0-2.1); ALBUMIN 3.8 g/dL (3.5-5.0); ALT/SGPT 29 U/L (21-72); AST/SGOT 82 U/L (17-59); BLOOD UREA NITROGEN 13 mg/dL (9-20); CALCIUM 8.6 mg/dl (8.6-10.4); GFR NON-AFRICAN AMERICAN > 60
[2018-08-11] MEDS ORDERED: Bisacodyl 5mg EC Tab PO ONE (09:00)
[2018-08-11] MEDS: Venlafaxine 75 mg ER Cap PO SCH (09:30)
[2018-08-11] MEDS ORDERED: MethylPREDNISolone 40 mg Vial IVP SCH (10:00)
--- NOTE | 2018-08-11 12:03 | PN ---
DATE: 08/11/2018 LOCATION: 353, bed A. SUBJECTIVE: This is a 43-year-old male, seen and examined in rounds with intermittent period of low abdominal pain, mainly in the left lower quadrant, but no reported active bleeding. No chest pain or palpitation. The entire chart is reviewed including but not limited to the most recent lab and radiology study results, current and the previous medication list, current and the previous medical events. Today's lab results still pending. However, the patient still had leukocytosis with low calcium, increased phosphorus with mildly elevated AST. PHYSICAL EXAMINATION: GENERAL: A 43-year-old male, awake, alert and oriented. VITAL SIGNS: Afebrile with pulse of 62, respiratory rate 20 to 22, blood pressure 140/86. HEENT: Showed pale dry oral mucous membrane. Nonicteric sclerae. LUNGS: Few scattered crepitation. Decreased air entry at bases. HEART: Positive S1 and S2. ABDOMEN: Soft with mild generalized tenderness. No mass or organomegaly. No rebound tenderness or guarding. EXTREMITIES: Without significant clubbing, cyanosis or edema. NEUROLOGIC: No reported new neurological deficits, sensory or motor. The patient still has left-sided abdominal tenderness, but less than before. IMPRESSION: 1. Diverticulosis with recurrent acute diverticulitis. 2. Known history of hypertension. 3. Known history of severe anxiety syndrome. 4. Leukocytosis, secondary to above. 5. Electrolyte imbalance with hypocalcemia, hyperphosphatemia. 6. Mildly elevated AST that could be secondary to chemical, mild hepatitis secondary to infectious process. SUGGESTIONS: 1. Continue current management. 2. Due to the patient's constipation, Colace should be considered as outpatient, otherwise Dulcolax once a day for the next 3 to 4 days to be given. 3. No aggressive GI workup in the meantime until the patient is more stable clinically, that could be done however as outpatient as needed. Rafael Rojas MD
[2018-08-11 12:08] LABS: EOSINOPHIL 1 % (0-4); LYMPHOCYTE 7 % (20-40); MONOCYTE 1 % (0-10); NEUTROPHIL 91 % (50-75); TOTAL CELLS COUNTED 100
[2018-08-11 12:17] LABS: PLATELET ESTIMATE NORMAL (NORMAL)
[2018-08-11 12:18] LABS: ANISOCYTOSIS SLIGHT; GIANT PLATELETS PRESENT; LARGE PLATELETS PRESENT
[2018-08-11 12:43] LABS: HYPOCHROMIC SLIGHT; POLYCHROMIC SLIGHT
--- NOTE | 2018-08-11 14:23 | CP.PCM.DIS ---
Provider - Provider Date of Admission: 08/09/18 11:22 Attending physician: Daniel Bridges Jr, MD Consults: 08/09/18 13:36 Gastroenterology Consult Routine Comment: Consulting Provider: Rafael Magaña Consulting Physician: Rafael Magaña Reason for Consult: recurrent diverticulitis, bleeding hemorrhoid Time Spent in preparation of Discharge (in minutes): 32 Hospital Course - Lab Results Lab Results: Most Recent Lab Values WBC 12.9 K/uL (4.8-10.8) H 08/11/18 07:50 RBC 4.42 Mil/uL (4.40-5.90) 08/11/18 07:50 Hgb 11.9 g/dL (12.0-18.0) L 08/11/18 07:50 Hct 35.4 % (35.0-51.0) 08/11/18 07:50 MCV 80.0 fL (80.0-94.0) 08/11/18 07:50 MCH 27.0 pg (27.0-31.0) 08/11/18 07:50 MCHC 33.7 g/dL (33.0-37.0) 08/11/18 07:50 RDW 14.9 % (11.5-14.5) H 08/11/18 07:50 Plt Count 291 K/uL (130-400) 08/11/18 07:50 MPV 8.5 fL (7.2-11.7) 08/11/18 07:50 Neut % (Auto) 90.0 % (50.0-75.0) H 08/11/18 07:50 Lymph % (Auto) 7.5 % (20.0-40.0) L 08/11/18 07:50 [place] % (Auto) 2.3 % (0.0-10.0) 08/11/18 07:50 Eos % (Auto) 0.0 % (0.0-4.0) 08/11/18 07:50 Baso % (Auto) 0.2 % (0.0-2.0) 08/11/18 07:50 Neut # (Auto) 11.6 K/uL (1.8-7.0) H 08/11/18 07:50 Lymph # (Auto) 1.0 K/uL (1.0-4.3) 08/11/18 07:50 [place] # (Auto) 0.3 K/uL (0.0-0.8) 08/11/18 07:50 Eos # (Auto) 0.0 K/uL (0.0-0.7) 08/11/18 07:50 Baso # (Auto) 0.0 K/uL (0.0-0.2) 08/11/18 07:50 Neutrophils % (Manual) 91 % (50-75) H 08/11/18 07:50 Lymphocytes % (Manual) 7 % (20-40) L 08/11/18 07:50 Monocytes % (Manual) 1 % (0-10) 08/11/18 07:50 Eosinophils % (Manual) 1 % (0-4) 08/11/18 07:50 Platelet Estimate Normal (NORMAL) 08/11/18 07:50 Large Platelets Present 08/11/18 07:50 Giant Platelets Present 08/11/18 07:50 Polychromasia Slight 08/11/18 07:50 Hypochromasia (manual) Slight 08/11/18 07:50 Anisocytosis (manual) Slight 08/11/18 07:50 PT 12.2 SECONDS (9.7-12.2) 08/09/18 09:08 INR 1.1 08/09/18 09:08 APTT 42 SECONDS (21-34) H 08/09/18 09:08 Sodium 136 mmol/L (132-148) 08/11/18 07:50 Potassium 4.0 mmol/L (3.6-5.2) 08/11/18 07:50 Chloride 103 mmol/L (98-107) 08/11/18 07:50 Carbon Dioxide 23 mmol/L (22-30) 08/11/18 07:50 Anion Gap 14 (10-20) 08/11/18 07:50 BUN 13 mg/dL (9-20) 08/11/18 07:50 Creatinine 0.9 mg/dL (0.8-1.5) 08/11/18 07:50 Est GFR ( Amer) > 60 08/11/18 07:50 Est GFR (Non-Af Amer) > 60 08/11/18 07:50 Random Glucose 168 mg/dL (75-110) H D 08/11/18 07:50 Calcium 8.6 mg/dl (8.6-10.4) 08/11/18 07:50 Phosphorus 4.0 mg/dL (2.5-4.5) 08/11/18 07:50 Magnesium 2.2 mg/dL (1.6-2.3) 08/11/18 07:50 Total Bilirubin 0.4 mg/dL (0.2-1.3) 08/11/18 07:50 AST 82 U/L (17-59) H D 08/11/18 07:50 ALT 29 U/L (21-72) 08/11/18 07:50 Alkaline Phosphatase 48 U/L (38-126) 08/11/18 07:50 Total Protein 7.1 g/dL (6.3-8.3) 08/11/18 07:50 Albumin 3.8 g/dL (3.5-5.0) 08/11/18 07:50 Globulin 3.3 gm/dL (2.2-3.9) 08/11/18 07:50 Albumin/Globulin Ratio 1.2 (1.0-2.1) 08/11/18 07:50 Lipase 120 U/L (23-300) 08/09/18 09:08 Urine Color Yellow (YELLOW) 08/09/18 09:08 Urine Clarity Clear (Clear) 08/09/18 09:08 Urine pH 7.0 (5.0-8.0) 08/09/18 09:08 Ur Specific [place] 1.009 (1.003-1.030) 08/09/18 09:08 Urine Protein Negative mg/dL (NEGATIVE) 08/09/18 09:08 Urine Glucose (UA) Normal mg/dL (Normal) 08/09/18 09:08 Urine Ketones Negative mg/dL (NEGATIVE) 08/09/18 09:08 Urine Blood Negative (NEGATIVE) 08/09/18 09:08 Urine Nitrate Negative (NEGATIVE) 08/09/18 09:08 Urine Bilirubin Negative (NEGATIVE) 08/09/18 09:08 Urine Urobilinogen Normal mg/dL (0.2-1.0) 08/09/18 09:08 Ur Leukocyte Esterase Neg Gale/uL (Negative) 08/09/18 09:08 Urine RBC (Auto) < 1 /hpf (0-3) 08/09/18 09:08 - Hospital Course Hospital Course: History and Physical : Patient is a 43 year old male with past medical history significant for recurrent diverticulitis ([place] [facility] [place]), hemorrhoids/anal fissure, HTN, anxiety, and alcohol abuse who presents to the ED today with complaint of severe left upper quadrant abdominal pain that began 2 days ago. The pain started out as a soreness and progressed to a severe throbbing pain that woke him from his sleep at 4am this morning. Patient jass cribes the character of the pain to be very similar in nature to his prior flare ups of diverticulitis and therefore he came straight to the emergency room. Patient admits to fevers and chills and had a temperature of 100 F this morning at home. Patient is otherwise in no acute distress. Patient says the pain has decreased to 6/10 after the Toradol given to him. Patient is able to eat and denies any nausea, vomiting, constipation, or diarrhea. Patient does admit to bleeding from his hemorrhoids yesterday after having a bowel movement. Patient denies signs of chest pain, palpitations, SOB, headache, dizziness, or sick contacts. Of note, patient had been told in March during hospital admission to follow up with GI for possible surgical intervention 2/2 recurrent episodes of diverticulitis but did not follow up due to lack of insurance. Hospital Course : Patient was admitted for acute diverticulitis. CT abd/pelvis showed Acute uncomplicated diverticulitis involving the mid descending colon. No micro perforation or abscess (see full report). GI was consulted and on the case. Patient was started on IV fluid hydration, IV ciprofloxacin and IV Flagyl. We also gave the patient IV solumedrol. For fever he was given Tylenol. Diet was advanced as tolerated. On day of discharge patient was doing well, afebrile. Mild Leukocytosis noted however may be due to steroid use. Pain was controlled with toradol. He was ambulating and tolerating diet. He also had a bowel movement. There was mild elevated in LFTs noted that improved throughout hospital stay. Recommending repeat CMP outpatient to monitor for resolution. Patient medically stable for discharge home. Patient to follow up with GI and general surgery outpatient. He will need colonoscopy and EGD outpatient. All questions and concerns were addressed. Discharge Diagnosis: Acute uncomplicated diverticulitis Discharge Medications: Ciprofloxacin 500mg Q12H x 5 days Flagyl 500mg TID x 5 days Medrol dose elizabeth Discharge Exam - Head Exam Head Exam: ATRAUMATIC, NORMAL INSPECTION, NORMOCEPHALIC - Eye Exam Eye Exam: EOMI, Normal appearance - ENT Exam ENT Exam: Mucous Membranes Moist - Respiratory Exam Respiratory Exam: Clear to PA & Lateral, NORMAL BREATHING PATTERN, UNREMARKABLE. absent: Rhonchi, Wheezes, Respiratory Distress - Cardiovascular Exam Cardiovascular Exam: REGULAR RHYTHM, +S1, +S2 - GI/Abdominal Exam GI & Abdominal Exam: Normal Bowel Sounds, Soft, Tenderness (mild tenderness in LLQ). absent: Guarding, Rebound, Rigid - Extremities Exam Extremities exam: pedal pulses present - Neurological Exam Neurological exam: Alert, Normal Gait, Oriented x3 - Psychiatric Exam Psychiatric exam: Normal Affect, Normal Mood - Skin Skin Exam: Normal Color, Warm Discharge Plan - Discharge Medications Prescriptions: Ciprofloxacin HCl [Cipro] 500 mg PO BID #10 tablet Methylprednisolone [Medrol Dose Pack (21 tabs)] 4 mg PO DAILY #21 mg Metronidazole [Flagyl] 500 mg PO TID #15 tablet - Follow Up Plan Condition: STABLE Disposition: HOME/ ROUTINE Instructions: Ciprofloxacin (Systemic), Diverticulitis (DC), Metronidazole (Systemic), Acute Abdominal Pain (DC) Additional Instructions: -Patient is cleared for discharge home -Please continue antibiotics as prescribed -Recommend repeat CMP in 1 week to monitor LFTs -Follow up with GI outpatient for colonoscopy -Outpatient general surgery referral -Follow up with PMD within 1 week -If symptoms worsen, please return to the emergency room Referrals: Rajesh Zhu Jr., MD [Staff Provider] - Rafael Magaña [Staff Provider] - Daniel Bridges Jr., MD [Medical Doctor] -
== END 2018-08-11 14:59 | disposition home or self-care (01) | DRG 392 ==
LOC: C.ER 08:32 → C.9E 11:22 → C.3T 15:51
PROVIDERS: ADMIT Internal Medicine; ATTEND Internal Medicine
DX: K57.32 Diverticulitis of large intestine without perforation or abscess without bleeding (principal); K57.30 Diverticulosis of large intestine without perforation or abscess without bleeding; F41.1 Generalized anxiety disorder; F10.10 Alcohol abuse, uncomplicated; I10 Essential (primary) hypertension; E83.51 Hypocalcemia; E83.39 Other disorders of phosphorus metabolism; D72.829 Elevated white blood cell count, unspecified; K64.9 Unspecified hemorrhoids; T38.0X5A Adverse effect of glucocorticoids and synthetic analogues, initial encounter; Z87.891 Personal history of nicotine dependence